=== PATIENT | female | born 1945 | race Caucasian/White ===

== ENCOUNTER 2018-10-23 18:38 | Observation (INO) | payer MEDICARE, MEDICAID, SELFPAY ==
[2018-10-23 18:40] VITALS: BP 163/93; PULSE 73; RESP 16; TEMP 37.1; O2SAT 98; BMI 24.0
--- NOTE | 2018-10-23 19:13 | ED.DCSUM_ITS ---
- ER Visit Summary Date of Service: 10/23/18 Chief Complaint: Bilateral leg redness History of Present Illness: The patient is a 73 F presenting with bilateral leg redness. Daughter states she noticed this a month ago and it has progressively worsened. Patient has been refusing to go to the doctor. She has not been to a doctor in over 20 years. She has a wound left lower leg. She denies drainage. Denies fever. She states she is able to ambulate. Denies chest pain or shortness of breath. Denies nausea or vomiting. Daughter was able to convince her to speak with a doctor through telemedicine today. She was advised to come to the ED for further evaluation. Physical Examination: Vitals are stable. Patient is afebrile. Alert no acute distress. HEENT exam is unremarkable. Neck is supple. Lungs are clear and equal bilaterally. Heart is regular rate and rhythm. Abdomen is soft nontender nondistended. Extremities bilateral lower extremity venous stasis changes with erythema and warmth. 4 cm circular left anterior lower extremity wound with no fluctuance. Neurovascularly intact distally. Skin is warm and dry. No focal neurologic deficit. Remainder of exam is unremarkable. Emergency Department Course and Treatment: Patient was given Ancef IV. CBC, chemistries unremarkable other than BUN 19. Patient is agreeable to admission for IV antibiotics. Discussed with the hospitalist. Disposition: Admission Impression: Bilateral lower extremity cellulitis This note was generated with [employer] dictation software. It may contain incorrect words, spelling, and punctuation that were not noted in review of the chart prior to signing ED Disposition - Plan for ED Patient: Referrals: NOT,DEFINED [NON-STAFF] -
[2018-10-23] MEDS: Cefazolin 1 GM/50 ML BAG IV (19:35)
[2018-10-23 19:40] LABS: Absolute Lymphocyte Count 1.85 X10^3/ul (0.83-4.51); Absolute Neutrophil Count 5.3 X10^3/uL (2.0-7.7); Basophil# 0.01 X10^3/uL; Basophil% 0.1 % (0-1); Eosinophil# 0.07 X10^3/uL; Eosinophils% 0.9 % (0-5); Hematocrit 37.9 % (37-47); Hemoglobin 12.4 g/dl (12.0-15.0); Lymphocyte # 1.85 X10^3/ul (4.0); Lymphocyte % 23.9 % (19-41); Mean Corp Hgb Conc 32.7 g/gl (32-36); Mean Corpuscular Hgb 28.6 pg (27.0-32.0); Mean Corpuscular Volume 87.5 fL (81-99); Mean Platelet Vol. 9.4 fl (6.2-12.0); Monocyte# 0.54 X10^3/uL; Neutrophil # 5.25 X10^3/uL (2.7-7.7); Platelet Count 428 K/mm3 (150-450); RBC Distribution Width SD 41.8 fl (35.1-43.9); Red Blood Count 4.33 M/mm3 (4.2-5.4); White Blood Count 7.7 K/mm3 (4.4-11.0)
[2018-10-23 19:46] LABS: POSITIVE COUNT NO; POSITIVE DIFFERENTIAL NO; POSITIVE MORPHOLOGY NO
[2018-10-23 19:49] LABS: Anion Gap 11 (5-15); BUN 19 mg/dL (7-18); BUN/Creat Ratio 24.8 RATIO (10-20); Calcium,Total 9.4 mg/dL (8.5-10.1); Chloride 101 mmol/L (98-107); Creatinine, Serum 0.77 mg/dL (0.55-1.02); EST Glomerular Filtration Rate 78 mL/min (>60); Est Glom Filt Rate - Afr Amer 95 mL/min (>60); Estimated Creatinine Clearance 43.27 ml/min; Glucose 103 mg/dL (74-106); Sodium Level 141 mmol/L (136-145)
--- NOTE | 2018-10-23 19:58 | HP.PCM_ITS ---
History of Present Illness Date of Admission: 10/23/18 Chief Complaint: ? BL LE cellulitis superimposed on chronic venous stasis The patient is a 73 y/o F w PMHx: Glaucoma, Former Tobacco use who presents to the [facility] ED on 10/23/18, referred to the ED per Tele medicine physician secondary to history of progressively worsening bilateral lower extremity redness with edema which has been worsening over the last month, recently refusing to be seen by a physician with nearly no medical evaluation in the last 20 years with an ongoing superficial left lower extremity wound without drainage, fevers or chills associated. Work-up in the ED included T 98.8, heart 73, BP 163/93, respiratory rate 16, 98% on room air, CBC unremarkable with no evidence of a shift, BMP unremarkable. In the ED patient administered Ancef. 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 Tobacco Use: Non-smoker Alcohol: None Drugs: None - *Family History Maternal History Items: - - Patient was raised in an [facility] and denies any history of her maternal or paternal family noting that neither went to the doctor. Paternal History Items: - - Patient was raised in an [facility] and denies any history of her maternal or paternal family noting that neither went to the doctor. Review of Systems Constitutional: Reports: Malaise, Fatigue. Denies: Anorexia, Chills, Fever, Weakness, Weight Change HEENT: Denies: Head Aches, Sinus Congestion, Sinus Drainage Cardiovascular: Reports: Edema. Denies: Chest Pain, Palpitations Respiratory: Denies: Cough, Shortness of breath at rest, Sputum production Gastrointestinal: Denies: Abdominal Pain, Nausea, Vomiting Genitourinary: Denies: Dysuria Musculoskeletal: Reports: Joint Pain. Denies: Joint Tenderness Skin: Reports: Skin Changes, Wounds. Denies: Rash Neurological: Denies: Numbness, Tingling, Focal weakness Psychiatric: Denies: Anxiety, Depression, Homicidal Ideations, Suicidal Ideations Hematologic/ Lymphatic: Reports: Easy Bruising. Denies: Easy Bleeding VTE Information - Inpt Only VTE Present on Admission: No VTE Mechan Device Prophylaxis: SCD's VTE Pharm Prophylaxis ordered?: Yes Subjective: Seated upright in the bed, no acute distress, notes discomfort to bilateral lower extremities primarily with palpation. Objective: Physical Examination: General: awake, alert, oriented x 3 and cooperative, seated upright in the ED bed in no apparent distress. Skin: normal color, turgor, no icterus, cyanosis noted bilateral lower extremity chronic venous stasis skin changes with notable 2-3+ pitting edema as well as noted left lateral lower extremity shallow wound with no discharge or foul odor. HEENT: AT/NC, EOMI, PERRLA, MMM, no carotid bruits or JVD noted. Lungs: CTA bilaterally, moderate effort, moderate decrease BL bases, no rales, ronchi or wheezing. Heart: Regular rate and rhythm; no gallop, rub audible. Abdomen: soft, NTTP, ND, normal BS, no HSM. Extremities: no cyanosis, clubbing, see skin w/ noted 2-3+ BL LE pitting edema, chronic stasis changes, LLE shallow superficial wound. Neurological: patient awake, alert, oriented x 3; cognitive function intact; pupils equally reactive to light and accomodation; cranial nerves II-XII grossly normal, moving all 4 extremities, no focal deficits, strength mildly to moderately global decrease secondary to acute presentation. Psychiatric: affect appears normal, no acute evidence of depressive or anxiety feelings. - Physical Exam Vital Signs Temp Pulse Resp BP Pulse Ox 98.8 F 73 16 163/93 H 98 10/23/18 18:40 10/23/18 18:40 10/23/18 18:40 10/23/18 18:40 10/23/18 18:40 Oxygen Delivery Method Room Air Weight: 140 lb 3.2 oz Body Mass Index (BMI) 24.0 Laboratory Tests Past 24 Hrs 10/23/18 10/23/18 19:17 19:17 WBC 7.7 RBC 4.33 Hgb 12.4 Hct 37.9 MCV 87.5 MCH 28.6 MCHC 32.7 RDW 13.0 RDW Differential 41.8 Plt Count 428 MPV 9.4 Immature Gran % (Auto) 0.100 Neut % (Auto) 68.0 Lymph % (Auto) 23.9 [place] % (Auto) 7.0 Eos % (Auto) 0.9 Baso % (Auto) 0.1 Absolute Neuts (auto) 5.3 Absolute Lymphs (auto) 1.85 Total Counted Not Reportable Sodium 141 Potassium 4.0 Chloride 101 Carbon Dioxide 29.0 Anion Gap 11 BUN 19 H Creatinine 0.77 Estim Creat Clear Calc 43.27 Est GFR (MDRD) Af Amer 95 Est GFR (MDRD) Non-Af 78 BUN/Creatinine Ratio 24.8 H Glucose 103 Calcium 9.4 Assessment/Plan The patient is a 73 y/o F w PMHx: Glaucoma, Former Tobacco use who presents to the [facility] ED on 10/23/18, referred to the ED per Tele medicine physician secondary to history of progressively worsening bilateral lower extremity redness with edema which has been worsening over the last month. (1) Low Suspicion for Acute BL LE Extremity Cellulitis w/ LLE Anterior Leg W ound, Not Infected Appearing, Complicated by likely BL LE Chronic Venous Stasis: Work-up in the ED included T 98.8, heart 73, BP 163/93, respiratory rate 16, 98% on room air, CBC unremarkable with no evidence of a shift, BMP unremarkable. Will admit to [facility] as observation only, maintain on IV ancef w/ pending MRSA screen, given presentation culture will not be able to be obtained, primarily need to elevated BL LE, administer x 1 dose IV lasix w/ SNUG THOR wraps to BL LE and likely this alone will assist in improvement of her extremities. Will plan repeat CBC in AM, monitor for erythema with VS checks, obtain Wound RN consultation for shallow superficial wound LLE likely secondary to blister. Will need PCP set-up prior to discharge. Also, given suspicion that she may not seek care beyond discharge will also request podiatry evaluation of her feet with notably poor pedial hygiene. (2) Elevated BP without HTN history: Elevated blood pressure in the ED, will continue to trend, if appropriate will need to add oral regimen, PRN IV hydralazine interim. (3) Former tobacco use: Encouraged continued tobacco cessation. (4) Glaucoma: Continue home eyedrops. (5) DVT prophylaxis: SCDs, Lovenox. Code Visit OBSV E&M: 38250 Initial observation care L3
--- NOTE | 2018-10-23 21:05 | VDLE_ITS ---
Reason For Study: Pain RIGHT LEFT GSV is normal. GSV is normal. CFV is compressible, spontaneous, competent CFV is compressible, spontaneous, competent, and demonstrates pulsatile venous flow. and demonstrates pulsatile venous flow. FV is compressible, spontaneous, competent FV is compressible, spontaneous, competent and demonstrates pulsatile venous flow. and demonstrates pulsatile venous flow. POP V is compressible, spontaneous, competent POP V is compressible, spontaneous, competent and demonstrates pulsatile venous flow. and demonstrates pulsatile venous flow. T/P Trunk is compressible. T/P Trunk is compressible. PTV is compressible. PTV is compressible. RT PerV is compressible. LT PerV is compressible. Procedure Exam performed portable in patient room. A preliminary report was called and/or faxed to [facility]. Interpretation Summary Deep veins of the lower extremities are bilaterally patent and compressible segmentally. There is no evidence of deep vein thrombosis on either side. Valvular competence appears intact within the proximal deep venous systems bilaterally. The greater saphenous veins appear bilaterally patent and compressible segmentally. Pulsatile flow is noted in the deep venous system bilaterally, which may be indicative of elevated central venous pressure (i.e. congestive heart failure, tricuspid valve insufficiency, etc.). Clinical correlation is advised. Ordering Physician: Diane Houston Performed By: Maria Victoria Terry RVT
[2018-10-23 21:06] VITALS: BMI 23.1; BMI 23.2
[2018-10-23 21:17] LABS: Magnesium 2.2 mg/dL (1.6-2.6)
[2018-10-23 21:20] VITALS: BP 154/88; PULSE 66; RESP 16; TEMP 36.9; O2SAT 97
[2018-10-23] MEDS: 0.9% NaCl Peripheral Flush Adult/Peds IV (22:55)
[2018-10-23] MEDS: Famotidine 20 MG Tablet PO (22:55)
[2018-10-23] MEDS: 0.9% Normal Saline 1,000 ML 100 ML IV (22:55)
[2018-10-23] MEDS: Furosemide 20 MG/2 ML VIAL IV (22:55)
[2018-10-23] MEDS: Latanoprost 0.005% 1 Bottle 1 DRP EACH EYE (22:55)
[2018-10-24 00:33] LABS: M R Staph aureus DNA By PCR Negative (Negative); Probe Check PASS; Specimen Processing Control PASS
[2018-10-24 01:53] VITALS: BP 122/72; PULSE 76; RESP 16; TEMP 36.9; O2SAT 96
[2018-10-24] MEDS: Cefazolin 1 GM/50 ML BAG IV (05:44)
[2018-10-24] MEDS: Acetaminophen 325 MG Tablet 650 MG PO (05:50)
[2018-10-24 06:43] LABS: Absolute Lymphocyte Count 1.45 X10^3/ul (0.83-4.51); Absolute Neutrophil Count 5.7 X10^3/uL (2.0-7.7); Basophil# 0.01 X10^3/uL; Basophil% 0.1 % (0-1); Eosinophil# 0.07 X10^3/uL; Eosinophils% 0.9 % (0-5); Hematocrit 36.2 % (37-47); Hemoglobin 11.7 g/dl (12.0-15.0); Lymphocyte # 1.45 X10^3/ul (4.0); Mean Corp Hgb Conc 32.3 g/gl (32-36); Mean Corpuscular Hgb 28.3 pg (27.0-32.0); Mean Corpuscular Volume 87.7 fL (81-99); Mean Platelet Vol. 9.4 fl (6.2-12.0); Monocyte# 0.86 X10^3/uL; Monocyte% 10.7 % (0-10); Neutrophil # 5.66 X10^3/uL (2.7-7.7); Neutrophil % 70.2 % (47-70); Platelet Count 375 K/mm3 (150-450); RBC Distribution Width CV 13.1 % (11.6-14.6); RBC Distribution Width SD 42.3 fl (35.1-43.9); Red Blood Count 4.13 M/mm3 (4.2-5.4); White Blood Count 8.1 K/mm3 (4.4-11.0)
[2018-10-24 06:45] LABS: POSITIVE COUNT NO; POSITIVE DIFFERENTIAL NO; POSITIVE MORPHOLOGY NO
[2018-10-24 06:51] LABS: Anion Gap 9 (5-15); BUN 16 mg/dL (7-18); BUN/Creat Ratio 21.9 RATIO (10-20); Calcium,Total 8.8 mg/dL (8.5-10.1); Chloride 105 mmol/L (98-107); Creatinine, Serum 0.73 mg/dL (0.55-1.02); EST Glomerular Filtration Rate 83 mL/min (>60); Est Glom Filt Rate - Afr Amer 100 mL/min (>60); Estimated Creatinine Clearance 43.27 ml/min; Glucose 113 mg/dL (74-106); Potassium 3.8 mmol/L (3.5-5.1); Sodium Level 141 mmol/L (136-145)
--- NOTE | 2018-10-24 06:58 | PCM.CONS.GEN ---
Problem List (1) Ulcer of left lower extremity with fat layer exposed Status: Acute (2) Venous insufficiency Status: Acute (3) Lower extremity edema Status: Acute (4) Tinea unguium Status: Acute Reason for Consult Date of Consultation: 10/24/18 Reason for Consultation: Venous stasis ulcer left lower extremity. Bilateral lower extremity edema History of Present Illness: The patient is a 73 y/o F w PMHx: Glaucoma, Former Tobacco use who presents to the [facility] ED on 10/23/18, referred to the ED per Tele medicine physician secondary to history of progressively worsening bilateral lower extremity redness with edema which has been slowly worsening over the last month. She is with her daughter resting in bed this morning. 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 She says she has been treating superficial ulcer to left lower leg with neosporin. She currently denies any feelings of nausea, vomiting, fever, or chills. 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 Paternal History Items: - - Patient was raised in an [facility] and denies any history of her maternal or paternal family noting that neither went to the doctor. Review of Systems Constitutional: Denies: Chills, Fever, Weight Change Cardiovascular: Denies: Chest Pain, Palpitations Respiratory: Denies: Cough, Shortness of breath at rest, Sputum production Gastrointestinal: Denies: Abdominal Pain, Nausea, Vomiting Skin: Reports: - - ulcer left lower extremity Patient Problems: Active and Suspected Problems Ulcer of left lower extremity with fat layer exposed (Acute) Venous insufficiency (Acute) Lower extremity edema (Acute) Tinea unguium (Acute) - Physical Exam General: Alert, Oriented x3, Cooperative, No apparent distress Extremities: Capillary Refill Less than 3 Seconds - To all distal digits bilateral, No Calf Tenderness - Negative Heracloi and Epperson signs bilateral, Edema - Bilateral pitting lower extremity edema, Peripheral Pulses Normal - DP and PT pulses palpable bilateral Skin: Ulcer/ Wound - Ulcer with fat layer exposed to left lateral lower leg measuring approximately 3 cm x 2 cm x 0.1 cm. Base is granular. No probing, tracking, undermining. There is no purulence, no malodor, no streaking cellulitis. There is some minor erythema to bilateral lower extremity which both the patient and the patient's daughter feel has improved just since admission., - - Toenails 1, 2, 3, 4, 5 of the right and left foot are extremely thickened elongated with the presence of subungual debris. All toenails are painful to palpation. Musculoskeletal: Tenderness - With manipulation of ulcer site Neurological: Sensory exam intact to light touch and pain Psych/Mental Status: Normal Affect, Appropriate Vital Signs Temp Pulse Resp BP Pulse Ox 98.5 F 76 16 122/72 H 96 10/24/18 01:53 10/24/18 01:53 10/24/18 01:53 10/24/18 01:53 10/24/18 01:53 Oxygen Delivery Method Room Air Weight: 61.292 kg Body Mass Index (BMI) 23.1 Intake and Output for Last 24 Hours 10/22/18 10/23/18 10/24/18 23:59 23:59 23:59 Intake Total 199 / 199 683 / 683 Output Total 200 / 200 800 / 800 Balance -1 / -1 -117 / -117 Laboratory Tests Past 24 Hrs 10/23/18 10/23/18 10/23/18 19:17 19:17 19:17 WBC 7.7 RBC 4.33 Hgb 12.4 Hct 37.9 MCV 87.5 MCH 28.6 MCHC 32.7 RDW 13.0 RDW Differential 41.8 Plt Count 428 MPV 9.4 Immature Gran % (Auto) 0.100 Neut % (Auto) 68.0 Lymph % (Auto) 23.9 [place] % (Auto) 7.0 Eos % (Auto) 0.9 Baso % (Auto) 0.1 Absolute Neuts (auto) 5.3 Absolute Lymphs (auto) 1.85 Total Counted Not Reportable Sodium 141 Potassium 4.0 Chloride 101 Carbon Dioxide 29.0 Anion Gap 11 BUN 19 H Creatinine 0.77 Estim Creat Clear Calc 43.27 Est GFR (MDRD) Af Amer 95 Est GFR (MDRD) Non-Af 78 BUN/Creatinine Ratio 24.8 H Glucose 103 Calcium 9.4 Magnesium 2.2 MRSA (PCR) 10/23/18 10/24/18 10/24/18 23:05 06:14 06:14 WBC 8.1 RBC 4.13 L Hgb 11.7 L Hct 36.2 L MCV 87.7 MCH 28.3 MCHC 32.3 RDW 13.1 RDW Differential 42.3 Plt Count 375 MPV 9.4 Immature Gran % (Auto) 0.100 Neut % (Auto) 70.2 H Lymph % (Auto) 18.0 L [place] % (Auto) 10.7 H Eos % (Auto) 0.9 Baso % (Auto) 0.1 Absolute Neuts (auto) 5.7 Absolute Lymphs (auto) 1.45 Total Counted Not Reportable Sodium 141 Potassium 3.8 Chloride 105 Carbon Dioxide 27.0 Anion Gap 9 BUN 16 Creatinine 0.73 Estim Creat Clear Calc 43.27 Est GFR (MDRD) Af Amer 100 Est GFR (MDRD) Non-Af 83 BUN/Creatinine Ratio 21.9 H Glucose 113 H Calcium 8.8 Magnesium MRSA (PCR) Negative Assessment/Plan All Active Problems Ulcer of left lower extremity with fat layer exposed (Acute) Venous insufficiency (Acute) Lower extremity edema (Acute) Tinea unguium (Acute) Ulcer fat layer exposed left lower extremity Venous insufficiency Lower extremity edema Tinea unguium This patient was carefully examined and evaluated this morning resting in bed with patient's daughter present in the room. WBC is 8.1. Vital signs are stable. Patient's ulcer site carefully freed of any debris leaving a nice red granular base. Aquacel Ag was applied to the base, followed by 4 x 4's, Kerlix and an Fabian bandage. Fabian bandage also applied to the right lower extremity. Patient to have dressing changes in this manner daily by nursing staff. Patient and the patient's daughter were instructed on the importance of keeping the legs elevated at all times while the patient is sitting or in bed as well as keeping compression to the lower extremities. Patient was instructed to not sit with the legs in a dependent position for an extended period of time. Toenails 1, 2, 3, 4, 5 of the right and left foot were carefully debrided in length using a nail nipper. This was done without incident. Patient experienced complete relief of toenail pain following debridement. The patient can follow-up at the wound healing center upon discharge for further treatment of her left lateral lower leg ulcer. Podiatry can follow this patient on an as-needed basis at this point.
[2018-10-24 07:32] VITALS: PULSE 80
[2018-10-24 07:38] VITALS: BP 109/69; PULSE 68; RESP 16; TEMP 37.1; O2SAT 95
[2018-10-24 07:53] VITALS: O2SAT 95
--- NOTE | 2018-10-24 08:12 | PN_ITS ---
Patient Problems: Active and Suspected Problems Ulcer of left lower extremity with fat layer exposed (Acute) Venous insufficiency (Acute) Lower extremity edema (Acute) Tinea unguium (Acute) Vitals/I&O's: Vital Signs Temp Pulse Resp BP Pulse Ox 98.8 F 68 16 109/69 95 10/24/18 07:38 10/24/18 07:38 10/24/18 07:38 10/24/18 07:38 10/24/18 07:38 Oxygen Delivery Method Room Air Weight: 135 lb 2 oz Body Mass Index (BMI) 23.1 Intake and Output for Last 24 Hours 10/22/18 10/23/18 10/24/18 23:59 23:59 23:59 Intake Total 199 / 199 683 / 683 Output Total 200 / 200 800 / 800 Balance -1 / -1 -117 / -117 Laboratory Results 10/23/18 19:17: WBC 7.7, RBC 4.33, Hgb 12.4, Hct 37.9, MCV 87.5, MCH 28.6, MCHC 32.7, RDW 13.0, RDW Differential 41.8, Plt Count 428, MPV 9.4, Immature Gran % (Auto) 0.100, Neut % (Auto) 68.0, Lymph % (Auto) 23.9, [place] % (Auto) 7.0, Eos % (Auto) 0.9, Baso % (Auto) 0.1, Absolute Neuts (auto) 5.3, Absolute Lymphs (auto) 1.85, Total Counted Not Reportable 10/23/18 19:17: Sodium 141, Potassium 4.0, Chloride 101, Carbon Dioxide 29.0, Anion Gap 11, BUN 19 H, Creatinine 0.77, Estim Creat Clear Calc 43.27, Est GFR (MDRD) Af Amer 95, Est GFR (MDRD) Non-Af 78, BUN/Creatinine Ratio 24.8 H, Glucos e 103, Calcium 9.4 10/23/18 19:17: Magnesium 2.2 10/23/18 23:05: MRSA (PCR) Negative 10/24/18 06:14: WBC 8.1, RBC 4.13 L, Hgb 11.7 L, Hct 36.2 L, MCV 87.7, MCH 28.3, MCHC 32.3, RDW 13.1, RDW Differential 42.3, Plt Count 375, MPV 9.4, Immature Gran % (Auto) 0.100, Neut % (Auto) 70.2 H, Lymph % (Auto) 18.0 L, [place] % (Auto) 10.7 H, Eos % (Auto) 0.9, Baso % (Auto) 0.1, Absolute Neuts (auto) 5.7, Absolute Lymphs (auto) 1.45, Total Counted Not Reportable 10/24/18 06:14: Sodium 141, Potassium 3.8, Chloride 105, Carbon Dioxide 27.0, Anion Gap 9, BUN 16, Creatinine 0.73, Estim Creat Clear Calc 43.27, Est GFR (MDRD) Af Amer 100, Est GFR (MDRD) Non-Af 83, BUN/Creatinine Ratio 21.9 H, Glucose 113 H, Calcium 8.8 Current Medications Acetaminophen (Tylenol) 650 mg PO Q6H PRN PRN PRN Reason: Non-cardiac pain (mod-severe) Last Admin: 10/24/18 05:50 Dose: 650 mg Documented by: Hydrocodone Bitart/Acetaminophen ([place] 5mg-325mg) 1 - 2 tablet PO Q6H PRN PRN PRN Reason: MOD-SEVERE PAIN (4-02/07) Al Hydroxide/Mg Hydroxide (Mylanta Ii) 15 - 30 ml PO Q4H PRN PRN PRN Reason: INDIGESTION Albuterol Sulfate (Ventolin Aerosols) 2.5 mg INHALATION Q2H PRN PRN PRN Reason: dyspnea, wheezing Dextrose (D50w Syringe) 0 gm IV X1 PRN; Protocol PRN Reason: Hypoglycemia Enoxaparin Sodium (Lovenox) 40 mg SC DAILY@1000 KAYE Famotidine (Pepcid) 20 mg PO BID [facility] Last Admin: 10/23/18 22:55 Dose: 20 mg Documented by: Glucagon () 1 mg IM .X1 PRN PRN Reason: Hypoglycemia Hydralazine HCl (Apresoline Iv) 10 mg IV Q4H PRN PRN PRN Reason: SBP > 160 Cefazolin Sodium () 1 gm in 50 mls @ 100 mls/hr IV Q8 [facility] Last Admin: 10/24/18 05:44 Dose: 100 mls/hr Documented by: Latanoprost (Xalatan Opthalmic) 1 drop EACH EYE QHS KAYE Last Admin: 10/23/18 22:55 Dose: 1 drop Documented by: Magnesium Hydroxide (Milk Of Magnesia) 30 ml PO DAILY PRN PRN Reason: Constipation Melatonin (Melatonin) 3 mg PO QHS PRN PRN PRN Reason: INSOMNIA Morphine Sulfate () 1 - 2 mg IV Q4H PRN PRN PRN Reason: PAIN Nutritional Formula (Lactose Free) (Ensure Enlive) 120 ml PO 4X/DAY KAYE Ondansetron HCl (Zofran) 4 mg IV Q8H PRN PRN PRN Reason: NAUSEA/VOMITING Sodium Chloride () 5 - 15 ml IV UD PRN PRN Reason: SALINE FLUSH Last Admin: 10/23/18 22:55 Dose: 10 ml Documented by: Timolol Maleate (Timoptic) 1 drop EACH EYE DAILY KAYE Medical Necessity - Tobacco Use Smoking Status: Former smoker Tobacco Use: Non-smoker Assessment/Plan All Active Problems Ulcer of left lower extremity with fat layer exposed (Acute) Venous insufficiency (Acute) Lower extremity edema (Acute) Tinea unguium (Acute) The patient is a 73 y/o F w PMHx: Glaucoma, Former Tobacco use who presents to the [facility] ED on 10/23/18, referred to the ED per Tele medicine physician secondary to history of progressively worsening bilateral lower extremity redness with edema which has been worsening over the last month. (1) Low Suspicion for Acute BL LE Extremity Cellulitis w/ LLE Anterior Leg Wound, Not Infected Appearing, Complicated by likely BL LE Chronic Venous Stasis: Work-up in the ED included T 98.8, heart 73, BP 163/93, respiratory rate 16, 98% on room air, CBC unremarkable with no evidence of a shift, BMP unremarkable. Will admit to [facility] as observation only, maintain on IV ancef w/ pending MRSA screen, given presentation culture will not be able to be obtained, primarily need to elevated BL LE, administer x 1 dose IV lasix w/ SNUG THOR wraps to BL LE and likely this alone will assist in improvement of her extremities. Will plan repeat CBC in AM, monitor for erythema with VS checks, obtain Wound RN consultation for shallow superficial wound LLE likely secondary to blister. Will need PCP set-up prior to discharge. Also, given suspicion that she may not seek care beyond discharge will also request podiatry evaluation of her feet with notably poor pedial hygiene. (2) Elevated BP without HTN history: Elevated blood pressure in the ED, will continue to trend, if appropriate will need to add oral regimen, PRN IV hydralazine interim. (3) Former tobacco use: Encouraged continued tobacco cessation. (4) Glaucoma: Continue home eyedrops. (5) DVT prophylaxis: SCDs, Lovenox.
--- NOTE | 2018-10-24 08:32 | PCM.DC ---
- Discharge Diagnoses Current Active Problems: Current Active and Chronic Problems Ulcer of left lower extremity with fat layer exposed (Acute) Venous insufficiency (Acute) Lower extremity edema (Acute) Tinea unguium (Acute) You will use the following diet at home:: Cardiac Discharge Activity: May Not Drive Keep extremity elevated above heart level: Left Leg Call your doctor if you observe: Fever of 101 or Higher, Change in Color, Inability to urinate, Inability to have a bowel movement, Shortness of breath, Dizziness, Fainting spells, Swelling in the ankles, Chest pain, Increased palpitations (irregular heartbeat), Calf discomfort, Uncontrolled pain Allergies/Adverse Reactions: Allergies No Known Allergies Allergy (Verified 10/23/18 18:39) Medications to take at Discharge Latanoprost 0.005% [Xalatan Opthalmic] 1 drp EACH EYE QHS 10/23/18 Timolol 0.5% [Timoptic] 1 drp EACH EYE DAILY 10/23/18 Cefadroxil [Duracef] 500 mg PO BID #10 cap 10/24/18 The following prescriptions were given: Cefadroxil [Duracef] 500 mg PO BID #10 cap Transmission Status: Pending to [id number] Primary Care Physician: NOT,DEFINED [NON-STAFF] - Please follow up with your Primary Care Physician in: in 1-2 week Test Results: Test results from this visit will be discussed in further detail at your follow-up appointment, if applicable. Please Follow Up With: Soham Hill DPM When: in 1-2 week
--- NOTE | 2018-10-24 08:34 | DS.PCM_ITS ---
Discharge Date and Diagnosis - Problem List Patient Problems: Active and Suspected Problems Ulcer of left lower extremity with fat layer exposed (Acute) Venous insufficiency (Acute) Lower extremity edema (Acute) Tinea unguium (Acute) Date of Admission: 10/23/18 Date of Discharge: 10/24/18 - Primary Discharge Diagnosis Active and Suspected Problems Ulcer of left lower extremity with fat layer exposed (Acute) Venous insufficiency (Acute) Lower extremity edema (Acute) Tinea unguium (Acute) Hospital Course and Treatment Consultations 10/23/18 21:05 Consult: Onc/Wound/machine shorthand reporter Routine Comment: Summary of Care Provided: [] The patient is a 73 y/o F with history of glaucoma, Former Tobacco use admitted to telemetry medicine physician secondary to progress Colin worsening of bilateral lower extremity redness with edema for last 1 month. (1) left lateral lower leg deep ulcer with bilateral lower extremity redness with edema probably from venous stasis, chronic in nature: Cellulitis ruled out patient has unremarkable CBC and vital signs stable. Patient was admitted on MedSurg. Empirically started on IV Ancef. MRSA nasal screen negative. Patient was seen by header set up operator. The patient has ulcer, deep to fat layer, approximately 3 x 2 x 0.1 cm. This with no tracking or undermining. The wound dressing was done by header set up operator with Aquacel gel with Fabian wrap bandage. Patient was advised to follow with the wound healing center upon discharge. Patient discharged on cefadroxil for 5 days. (2) Elevated BP without HTN history: Blood pressure control. Advised to follow- up with PCP. (3) Former tobacco use: Encouraged continued tobacco cessation. (4) Glaucoma: Continue home eyedrops. (5) DVT prophylaxis: SCDs, Lovenox. Discharge medication reconciliation done. Discharge follow-up instructions completed. Discharge process discussed with the patient and her daughter near the bedside and all questions were answered to patient's satisfaction. Total time spent, exact 35 minutes on discharge meds reconciliation, examination, review of imaging and blood test and discussion with the patient on follow-up instructions. Patient Problems: Active and Suspected Problems Ulcer of left lower extremity with fat layer exposed (Acute) Venous insufficiency (Acute) Lower extremity edema (Acute) Tinea unguium (Acute) - Physical Exam Vital Signs Temp Pulse Resp BP Pulse Ox 98.8 F 68 16 109/69 95 10/24/18 07:38 10/24/18 07:38 10/24/18 07:38 10/24/18 07:38 10/24/18 07:38 Oxygen Delivery Method Room Air Weight: 135 lb 2 oz Body Mass Index (BMI) 23.1 Intake and Output for Last 24 Hours 10/22/18 10/23/18 10/24/18 23:59 23:59 23:59 Intake Total 199 / 199 683 / 683 Output Total 200 / 200 800 / 800 Balance -1 / -1 -117 / -117 Laboratory Tests Past 24 Hrs 10/23/18 10/23/18 10/23/18 19:17 19:17 19:17 WBC 7.7 RBC 4.33 Hgb 12.4 Hct 37.9 MCV 87.5 MCH 28.6 MCHC 32.7 RDW 13.0 RDW Differential 41.8 Plt Count 428 MPV 9.4 Immature Gran % (Auto) 0.100 Neut % (Auto) 68.0 Lymph % (Auto) 23.9 [place] % (Auto) 7.0 Eos % (Auto) 0.9 Baso % (Auto) 0.1 Absolute Neuts (auto) 5.3 Absolute Lymphs (auto) 1.85 Total Counted Not Reportable Sodium 141 Potassium 4.0 Chloride 101 Carbon Dioxide 29.0 Anion Gap 11 BUN 19 H Creatinine 0.77 Estim Creat Clear Calc 43.27 Est GFR (MDRD) Af Amer 95 Est GFR (MDRD) Non-Af 78 BUN/Creatinine Ratio 24.8 H Glucose 103 Calcium 9.4 Magnesium 2.2 MRSA (PCR) 10/23/18 10/24/18 10/24/18 23:05 06:14 06:14 WBC 8.1 RBC 4.13 L Hgb 11.7 L Hct 36.2 L MCV 87.7 MCH 28.3 MCHC 32.3 RDW 13.1 RDW Differential 42.3 Plt Count 375 MPV 9.4 Immature Gran % (Auto) 0.100 Neut % (Auto) 70.2 H Lymph % (Auto) 18.0 L [place] % (Auto) 10.7 H Eos % (Auto) 0.9 Baso % (Auto) 0.1 Absolute Neuts (auto) 5.7 Absolute Lymphs (auto) 1.45 Total Counted Not Reportable Sodium 141 Potassium 3.8 Chloride 105 Carbon Dioxide 27.0 Anion Gap 9 BUN 16 Creatinine 0.73 Estim Creat Clear Calc 43.27 Est GFR (MDRD) Af Amer 100 Est GFR (MDRD) Non-Af 83 BUN/Creatinine Ratio 21.9 H Glucose 113 H Calcium 8.8 Magnesium MRSA (PCR) Negative Discharge Activity: May Not Drive Keep extremity elevated above heart level: Left Leg Call your doctor if you observe: Fever of 101 or Higher, Change in Color, Inability to urinate, Inability to have a bowel movement, Shortness of breath, Dizziness, Fainting spells, Swelling in the ankles, Chest pain, Increased palpitations (irregular heartbeat), Calf discomfort, Uncontrolled pain Home Medications: Medications to take at Discharge Latanoprost 0.005% [Xalatan Opthalmic] 1 drp EACH EYE QHS 10/23/18 Timolol 0.5% [Timoptic] 1 drp EACH EYE DAILY 10/23/18 Cefadroxil [Duracef] 500 mg PO BID #10 cap 10/24/18 Following Prescrptions Were Given to Patient: Cefadroxil [Duracef] 500 mg PO BID #10 cap Transmission Status: Received by [id number] Primary Care Physician: NOT,DEFINED [NON-STAFF] - Please follow up with your Primary Care Physician in: in 1-2 week Please Follow Up With: Soham Hill DPM When: in 1-2 week Medical Necessity - Tobacco Use Smoking Status: Former smoker Tobacco Use: Non-smoker Meaningful Use Info Meaningful Use Diagnoses (Choose all that apply): None applicable Code Visit Inpatient E&M: 74087 Disch Hosp
[2018-10-24] MEDS: 0.9% NaCl Peripheral Flush Adult/Peds IV (09:30)
[2018-10-24] MEDS: Enoxaparin 40 MG/0.4 ML Syringe SC (09:30)
[2018-10-24] MEDS: Famotidine 20 MG Tablet PO (09:30)
[2018-10-24] MEDS: Timolol 0.5% 5ML OPTH.BTL 1 DRP EACH EYE (09:31)
--- NOTE | 2018-10-24 11:20 | CASEMGMT ---
SEVERINO BAUM Face to Face with patient for initial transition planning/care coordination assessment. SEVERINO BAUM introduced self and role at [facility]. Patient lying in bed, alert and oriented. Patient willing to participate in assessment and is able to answer all questions appropriately. Care providers, pharmacy, and demographics verified. Patient wishes to discharge home, denies need for home health at this time. Patient states she has no further needs or concerns at this time. CM to follow for discharge planning needs that may arise. PCP: None, list of PCPs provided, daughter states she will help schedule appt. Specialists: None Preferred Pharmacy: [facility] Insurance: [facility] Prescription Benefit: ? Living Will/HPOA: none LNOK: son and daughter Living Arrangements: Patient lives alone in first floor apartment. Patient's son live right down the street and is a YOU[employer] OFF[employer]. Transportation: son or daughter DME/HHC: Patient denies any DME or HHC. Daughter and son to assist with dressing changes. Patient is to follow-up in the wound center. SEVERINO BAUM updated family that once patient is established with PCP, they could look into HHC if needed. Family and patient voiced understanding. Disposition Plan: Patient to discharge home with family support and follow-up plans in place. Maria Victoria FRYE, RN, CM
[2018-10-24 12:22] VITALS: BP 149/71; PULSE 81; RESP 18; TEMP 37.1; O2SAT 97
== END 2018-10-24 13:25 | disposition home or self-care (01) ==
LOC: ED 19:22 → MS3 20:17
PROVIDERS: Admitting Provider Family Medicine; Emergency Provider Emergency Medicine; Referring Provider Family Medicine; Visit Provider Internal Medicine
DX: I87.2 Venous insufficiency (chronic) (peripheral) (principal); B35.1 Tinea unguium; L97.822 Non-pressure chronic ulcer of other part of left lower leg with fat layer exposed; H40.9 Unspecified glaucoma; R03.0 Elevated blood-pressure reading, without diagnosis of hypertension; R60.0 Localized edema; Z87.891 Personal history of nicotine dependence; Z79.899 Other long term (current) drug therapy
CPT/HCPCS: 36415; 80048; 83735; 85025; 87641; 93970; 96361; 96365; 96366; 96372; 96375; 99218; 99282; J7030; A4216; G0378; J1940

== ENCOUNTER 2018-11-28 15:15 | Outpatient (RCR) | payer MEDICARE, MEDICAID, SELFPAY ==
[2018-10-23 21:06] VITALS: BMI 23.1
[2018-11-08 08:52] VITALS: BP 161/88; PULSE 71; RESP 18; TEMP 36.2; BMI 20.7
[2018-11-08 09:12] VITALS: BMI 20.7
--- NOTE | 2018-11-08 09:47 | PCM.WC.HP ---
(1) Ulcer of left lower extremity with fat layer exposed Status: Acute Current Visit: No Code(s): L97.922 - Non-pressure chronic ulcer of unspecified part of left lower leg with fat layer exposed (2) Pain in left lower leg Status: Acute Current Visit: Yes Code(s): M79.662 - Pain in left lower leg (3) Lower extremity edema Status: Acute Current Visit: No Code(s): R60.0 - Localized edema (4) Venous insufficiency Status: Acute Current Visit: No Code(s): I87.2 - Venous insufficiency (chronic) (peripheral) History of Present Illness Date of Service: 11/08/18 Chief Complaint: left lower leg ulcer History of Wound: This 73-year-old female presents to the wound healing center today for left lower leg ulcer. The patient was originally seen late September in the hospital. This patient had been neglecting her overall health for years and had not seen a doctor of any sort. Since her discharge from the hospital, she has been having daily dressing changes performed by family members and keeping compression to lower extremities and trying to keep her legs elevated. She feels that she has noticed improvement in the ulcer site since her discharge. She currently denies any feelings of nausea, vomiting, fever, chills. Past Medical History Surgical History: no surgical history Allergies/Adverse Reactions: Allergies No Known Allergies Allergy (Verified 10/23/18 18:39) Home Medications: Ambulatory Orders Medication Instructions Recorded Latanoprost 0.005% [Xalatan 1 drp EACH EYE QHS 10/23/18 Opthalmic] Timolol 0.5% [Timoptic] 1 drp EACH EYE DAILY 10/23/18 - Family History Maternal - - Patient was raised in an [facility] and denies any history of her maternal or paternal family noting that neither went to the doctor. Paternal - - Patient was raised in an [facility] and denies any history of her maternal or paternal family noting that neither went to the doctor. Smoking Status: Never smoker Review of Systems Constitutional: Denies: Chills, Fever, Weight Change Cardiovascular: Denies: Chest Pain, Palpitations Respiratory: Denies: Cough, Shortness of Breath Gastrointestinal: Denies: Diarrhea, Nausea, Vomiting Skin: Reports: - - Left lower leg ulcer - Physical Exam Vital Signs Temp Pulse Resp BP 97.1 F L 71 18 161/88 H 11/08/18 08:52 11/08/18 08:52 11/08/18 08:52 11/08/18 08:52 General: Alert, Oriented x3, Cooperative, No apparent distress Extremities: No cyanosis, Capillary Refill Less than 3 Seconds, No Calf Tenderness - Negative Heraclio and Epperson sign, Edema - Bilateral lower extremity edema, Peripheral Pulses Normal Skin: Ulcer/ Wound - Ulcer left lower extremity with fat layer exposed. The basis of mixture of granular tissue, adherent slough, fibrin, biofilm, and minor surrounding hyperkeratotic tissue. There is no probing to bone, no tracking, no undermining, no purulence, no malodor, no surrounding or extending cellulitis, and no increase in warmth to the ulcer site. Wound Measurements and Assessment WC - Nurse 1 - General Ulcer Measurement Start: 11/08/18 08:48 Freq: Status: Active Protocol: Activity Type Activity Date Activity User E-Sign Co-Sign Detail Recorded Client Recorded Date Recorded By Document 11/08/18 09:12 [id number] 11/08/18 09:17 11/08/18 09:12 Wound Center Nurse 1 [Ulcer Assessment] #1 Left Lateral lower ext -Combined with other wound No -Current Size (cm) - Length 1.9 -Current Size (cm) - Width 1.2 -Current Size (cm) - Depth 0.1 -Total Square Cm 2.28 -Date of Last Picture (Recall this 11/08/18 field) -Photo Taken Yes -Epithelialization Large 67-100% -Tunneling No -Undermining/Tunneling No -Circular Undermining No -Exudate Amt Small -Exudate Type Serosanguineous -Wound Margin Flat & Intact -Granulation Amt Large (67-100%) -Granulation Quality Red -Slough/Fibrin Yes -Necrosis Amt None Present (0 %) -Structure Exposed None/Limited to Skin Breakdown -Texture (Tiny-wound Skin Appearance) Assessed,Rash -Moisture (Tiny-wound Skin Appearance Assessed,Dry/ ) Scaly -Color (Tiny-wound Skin Appearance) Assessed, Erythema -Temperature (Tiny-wound Skin No Abnormality Appearance) (Pt Warm) -Ulcer Cleansing Rinsed/ Irrigated with Saline -Foul Odor after Cleansing No -Anesthetic Used 5% Lidocaine Gel [Edema Assessment] -Lower Limb Edema Present Yes -Right Calf (cm) 37.5 -Right Ankle (cm) 21.5 -Left Calf (cm) 35 -Left Ankle (cm) 22 MARY - Nurse 2 - General Ulcer CM Notes Start: 11/08/18 08:48 Freq: Status: Active Protocol: Activity Type Activity Date Activity User E-Sign Co-Sign Detail Recorded Client Recorded Date Recorded By Document 11/08/18 09:42 [id number] 11/08/18 09:43 11/08/18 09:42 Wound Center Nurse 2 [Procedure/Treatment] #1 Left Lateral lower ext -Time 09:42 -Correct Patient Yes -Correct Side, Site, Position Yes -Correct Procedure Yes -Procedure Performed Yes -Type of Procedure Debridement -Clinical Debridement Subcutaneous -Post Debridement Size (cm) - Length 1.9 -Post Debridement Size (cm) - Width 1.3 -Post Debridement Size (cm) - Depth 0.1 -Total Square Cm 2.47 -Wound/Ulcer Outcome Not Healed -Ulcer Cleansing Rinsed/ Irrigated with Saline -Foul Odor after Cleansing No -Bioengineered Tissue No -Bleeding Controlled with Pressure -Offloading No -Treatment Response Procedure Tolerated Well [See Physician Procedure note for Specifics] Pain Scale: 0-10 Numeric [Pain] -Is Patient Pain Free? Yes Musculoskeletal: Tenderness - With manipulation of ulcer site Neurological: Sensory exam intact to light touch and pain Psych/Mental Status: Normal Affect, Appropriate Debridement Note Post-Debridement Measurements/Treatment MARY - Nurse 2 - General Ulcer CM Notes Start: 11/08/18 08:48 Freq: Status: Active Protocol: Activity Type Activity Date Activity User E-Sign Co-Sign Detail Recorded Client Recorded Date Recorded By Document 11/08/18 09:42 [id number] 11/08/18 09:43 11/08/18 09:42 Wound Center Nurse 2 #1 Left Lateral lower ext -Time 09:42 -Correct Patient Yes -Correct Side, Site, Position Yes -Correct Procedure Yes -Procedure Performed Yes -Type of Procedure Debridement -Clinical Debridement Subcutaneous -Post Debridement Size (cm) - Length 1.9 -Post Debridement Size (cm) - Width 1.3 -Post Debridement Size (cm) - Depth 0.1 -Total Square Cm 2.47 -Wound/Ulcer Outcome Not Healed -Ulcer Cleansing Rinsed/ Irrigated with Saline -Foul Odor after Cleansing No -Bioengineered Tissue No -Bleeding Controlled with Pressure -Offloading No -Treatment Response Procedure Tolerated Well Pain Scale: 0-10 Numeric Is Patient Pain Free? Yes Wound debrided: Left lower leg Laterality: Left Type of Debridement: Excisional debridement Anesthesia Used: 4% Lidocaine Solution Depth: in the subcutaneous layer Percentage of wound debrided: 100 Instrument Used: 5mm curette Tissue Removed: Adherent slough, fibrin, biofilm, hyperkeratotic tissue Severity: Fat Layer Exposed Amount of bleeding with debridement: Mild Bleeding Controlled with: Pressure Patient tolerated procedure well Assessment/Plan Active Problems Pain in left lower leg (Acute) Assessment: Ulcer left lower leg. Venous insufficiency. Lower extremity edema. Pain left lower leg. Other comorbidities Plan: This patient was carefully examined and evaluated in detail today. A subcutaneous debridement was performed as noted in the clinical panel. Once complete a slightly moistened Aquacel Ag was placed to the base followed by a dry sterile dressing and Tubigrip for compression. Patient is to have the dressing change in this manner daily with the help of family members. Dressing supplies were ordered to be delivered to the patient's house. The importance of keeping the ulcer site offloaded was stressed in detail. The importance of keeping compression to the area is also stressed that this patient. She was instructed to keep the lower extremities elevated all times while seated or lying down. Patient is recently finished a course of antibiotics. There are no current signs of local infection appreciated today. Patient's lab work was reviewed from her brief stay in the hospital late last month. Her venous Doppler studies were also reviewed. I recommend a diet high in protein to help optimize the patient's ulcer healing potential. It was stressed the importance of her getting established with a primary care physician. The patient was educated on all signs and symptoms of local and systemic infection, and she was instructed to go to the emergency room immediately should she notice any of these. All other questions were answered to patient satisfaction. Patient will follow back up in clinic in 1 week to check on progress, but was instructed to follow-up sooner if needed.
[2018-11-14 14:39] VITALS: BP 151/81; PULSE 78; RESP 16; TEMP 36.6; BMI 20.7
--- NOTE | 2018-11-14 15:30 | PN.PCM_ITS ---
(1) Ulcer of left lower extremity with fat layer exposed Status: Chronic Current Visit: Yes Code(s): L97.922 - Non-pressure chronic ulcer of unspecified part of left lower leg with fat layer exposed (2) Venous insufficiency Status: Chronic Current Visit: Yes Code(s): I87.2 - Venous insufficiency (chronic) (peripheral) (3) Lower extremity edema Status: Chronic Current Visit: Yes Code(s): R60.0 - Localized edema (4) Pain in left lower leg Status: Chronic Current Visit: Yes Code(s): M79.662 - Pain in left lower leg Type of Wound Date of Service: 11/15/18 Chief Complaint: left lower leg ulcer History of Wound: This 73-year-old female presents to the wound healing center today for left lower leg ulcer. She tries to wear compression dressing and elevates her legs. She had venous reflux studies performed. She currently denies any feelings of nausea, vomiting, fever, chills. Progress of Wound: Stable - Physical Exam Vital Signs Temp Pulse Resp BP 97.8 F 78 16 151/81 H 11/14/18 14:39 11/14/18 14:39 11/14/18 14:39 11/14/18 14:39 General: Alert, Oriented x3, Cooperative, No apparent distress HEENT: Atraumatic Extremities: No cyanosis, Capillary Refill Less than 3 Seconds, No Calf Tenderness - Negative Heraclio and Epperson sign bilateral. Compartments soft to palpate bilateral., Diminished Peripheral Pulses, Edema - Bilateral lower extremity mild to moderate Skin: Ulcer/ Wound - No purulence, erythema, streaking, odor, infection. The peripheral skin is hairless and atrophic. Wound Measurements and Assessment WC - Nurse 1 - General Ulcer Measurement Start: 11/08/18 08:48 Freq: Status: Active Protocol: Activity Type Activity Date Activity User E-Sign Co-Sign Detail Recorded Client Recorded Date Recorded By Document 11/14/18 14:39 [facility] [id number] 11/14/18 14:50 [facility] 11/14/18 14:39 Wound Center Nurse 1 [Ulcer Assessment] #1 Left Lateral lower ext -Combined with other wound No -Current Size (cm) - Length 1.8 -Current Size (cm) - Width 1.1 -Current Size (cm) - Depth 0.1 -Total Square Cm 1.98 -Photo Taken No -Epithelialization Small 1-33% -Tunneling No -Undermining/Tunneling No -Circular Undermining No -Exudate Amt Small -Exudate Type Serosanguineous -Wound Margin Flat & Intact -Granulation Amt Large (67-100%) -Granulation Quality Red -Slough/Fibrin No -Necrosis Amt Small (1-33%) -Necrotic Tissue Type Adherent Slough -Texture (Tiny-wound Skin Appearance) Assessed, Scarring -Moisture (Tiny-wound Skin Appearance Assessed,Dry/ ) Scaly -Color (Tiny-wound Skin Appearance) Assessed -Temperature (Tiny-wound Skin No Abnormality Appearance) (Pt Warm) -Tenderness on Palpation (Tiny-wound No Skin Appearance) -Ulcer Cleansing Rinsed/ Irrigated with Saline -Foul Odor after Cleansing No -Anesthetic Used 4% Lidocaine Solution [Edema Assessment] -Lower Limb Edema Present Yes -Left Calf (cm) 34.8 -Left Ankle (cm) 21 WC - Nurse 2 - General Ulcer CM Notes Start: 11/08/18 08:48 Freq: Status: Active Protocol: Activity Type Activity Date Activity User E-Sign Co-Sign Detail Recorded Client Recorded Date Recorded By Document 11/14/18 15:18 AN [id number] 11/14/18 15:19 AN 11/14/18 15:18 Wound Center Nurse 2 [Procedure/Treatment] #1 Left Lateral lower ext -Time 15:18 -Correct Patient Yes -Correct Side, Site, Position Yes -Correct Procedure Yes -Procedure Performed Yes -Type of Procedure Debridement -Clinical Debridement Subcutaneous -Post Debridement Size (cm) - Length 1.9 -Post Debridement Size (cm) - Width 1.2 -Post Debridement Size (cm) - Depth 0.1 -Total Square Cm 2.28 -Wound/Ulcer Outcome Not Healed -Ulcer Cleansing Rinsed/ Irrigated with Saline -Foul Odor after Cleansing No -Bioengineered Tissue No -Treatment Response Procedure Not Tolerated Well [See Physician Procedure note for Specifics] Pain Scale: 0-10 Numeric [Pain] -Is Patient Pain Free? Yes Musculoskeletal: No Tenderness to Palpation of Joints or Extremities, Muscle Wasting Neurological: Sensory exam intact to light touch and pain Psych/Mental Status: Normal Affect, Appropriate Debridement Note Post-Debridement Measurements/Treatment WC - Nurse 2 - General Ulcer CM Notes Start: 07/11/19 08:48 Freq: Status: Active Protocol: Activity Type Activity Date Activity User E-Sign Co-Sign Detail Recorded Client Recorded Date Recorded By Document 11/08/18 09:42 SILKE [id number] 11/08/18 09:43 Document 11/14/18 15:18 AN [id number] 11/14/18 15:19 AN 11/08/18 11/14/18 09:42 15:18 Wound Center Nurse 2 #1 Left Lateral lower ext -Time 09:42 15:18 -Correct Patient Yes Yes -Correct Side, Site, Position Yes Yes -Correct Procedure Yes Yes -Procedure Performed Yes Yes -Type of Procedure Debridement Debridement -Clinical Debridement Subcutaneous Subcutaneous -Post Debridement Size (cm) - Length 1.9 1.9 -Post Debridement Size (cm) - Width 1.3 1.2 -Post Debridement Size (cm) - Depth 0.1 0.1 -Total Square Cm 2.47 2.28 -Wound/Ulcer Outcome Not Healed Not Healed -Ulcer Cleansing Rinsed/ Rinsed/ Irrigated with Irrigated with Saline Saline -Foul Odor after Cleansing No No -Bioengineered Tissue No No -Bleeding Controlled with Pressure -Offloading No -Treatment Response Procedure Procedure Not Tolerated Well Tolerated Well Pain Scale: 0-10 Numeric Is Patient Pain Free? Yes Yes Wound debrided: lateral leg Laterality: Left Type of Debridement: Excisional debridement Anesthesia Used: 5% Lidocaine Gel Depth: in the subcutaneous layer Percentage of wound debrided: 100 Instrument Used: #15 blade Tissue Removed: fibrous, devitalized subcutaneous, biofiom, slough Severity: Fat Layer Exposed Amount of bleeding with debridement: Mild Bleeding Controlled with: Pressure Patient tolerated procedure well Assessment/Plan Active Problems Ulcer of left lower extremity with fat layer exposed (Chronic) Venous insufficiency (Chronic) Lower extremity edema (Chronic) Pain in left lower leg (Chronic) Assessment: Ulcer left lower leg with fat layer exposed, no infection. Venous insufficiency. Lower extremity edema. Pain left lower leg. Other comorbidities Plan: This patient was carefully examined and evaluated in detail today. A subcutaneous debridement was performed as noted in the clinical panel. Once complete a slightly moistened Aquacel Ag was placed to the base followed by a dry sterile dressing and Tubigrip for compression. Recommend application of advanced wound healing probably, and he thinks. The purpose, indication, plan application and anticipated healing time management were discussed in detail. This is medically necessary for limb salvage. It is noted she has already undergone traditional comprehensive wound healing plan for at least 1 month. Prior authorization will be initiated and she is amenable to proceed. Patient is to have the dressing change in this manner daily with the help of family members. She was instructed to keep the lower extremities elevated all times while seated or lying down. There are no current signs of local infection appreciated today. I do not recommend antibiotics. Patient's lab work was reviewed from her brief stay in the hospital late last month. Her venous Doppler studies were also reviewed. She does not appear to have incompetent veins to bilateral lower extremities. I recommend a diet high in protein to help optimize the patient's ulcer healing potential. Ramón nutritional supplementation was recommended. It was stressed the importance of her getting established with a primary care physician. The patient was educated on all signs and symptoms of local and systemic infection, and she was instructed to go to the emergency room immediately should she notice any of these. All other questions were answered to patient satisfaction. Patient will follow back up in clinic in 1 week.
[2018-11-21 13:54] VITALS: BP 168/108; PULSE 79; RESP 18; TEMP 36.3; BMI 20.7
--- NOTE | 2018-11-21 14:58 | PCM.WC.PN ---
(1) Ulcer of left lower extremity with fat layer exposed Status: Chronic Current Visit: Yes Code(s): L97.922 - Non-pressure chronic ulcer of unspecified part of left lower leg with fat layer exposed (2) Venous insufficiency Status: Chronic Current Visit: Yes Code(s): I87.2 - Venous insufficiency (chronic) (peripheral) (3) Lower extremity edema Status: Chronic Current Visit: Yes Code(s): R60.0 - Localized edema (4) Pain in left lower leg Status: Chronic Current Visit: Yes Code(s): M79.662 - Pain in left lower leg Type of Wound Date of Service: 11/23/18 Chief Complaint: left lower leg ulcer History of Wound: This 73-year-old female presents to the wound healing center today for left lower leg ulcer. She tries to wear compression dressing and elevates her legs. She had venous reflux studies performed. She currently denies any feelings of nausea, vomiting, fever, chills. Progress of Wound: Stable - Physical Exam Vital Signs Temp Pulse Resp BP 97.4 F L 79 18 168/108 H 11/21/18 13:54 11/21/18 13:54 11/21/18 13:54 11/21/18 13:54 General: Alert, Oriented x3, Cooperative, No apparent distress Extremities: No cyanosis, No edema, Capillary Refill Less than 3 Seconds, No Calf Tenderness - Negative Heraclio and Epperson sign, Diminished Peripheral Pulses Skin: Ulcer/ Wound - No purulence, erythema, string, odor, infection. The peripheral skin is hairless and atrophic Wound Measurements and Assessment WC - Nurse 1 - General Ulcer Measurement Start: 11/08/18 08:48 Freq: Status: Active Protocol: Activity Type Activity Date Activity User E-Sign Co-Sign Detail Recorded Client Recorded Date Recorded By Document 11/21/18 13:54 DL [id number] 11/21/18 14:00 DL 11/21/18 13:54 Wound Center Nurse 1 [Ulcer Assessment] #1 Left Lateral lower ext -Current Size (cm) - Length 0.4 -Current Size (cm) - Width 0.3 -Current Size (cm) - Depth 0.1 -Total Square Cm 0.12 -Photo Taken No -Exudate Amt None Present -Granulation Amt Large (67-100%) -Granulation Quality [place] -Necrosis Amt Small (1-33%) -Necrotic Tissue Type Adherent Slough -Structure Exposed N/A -Texture (Tiny-wound Skin Appearance) Scarring -Moisture (Tiny-wound Skin Appearance Dry/Scaly ) -Color (Tiny-wound Skin Appearance) Rubor -Temperature (Tiny-wound Skin No Abnormality Appearance) (Pt Warm) -Tenderness on Palpation (Tiny-wound No Skin Appearance) -Ulcer Cleansing Rinsed/ Irrigated with Saline -Foul Odor after Cleansing No -Anesthetic Used 5% Lidocaine Gel [Edema Assessment] -Left Calf (cm) 33 -Point of measurement (cm from the 19.3 medial instep) WC - Nurse 2 - General Ulcer CM Notes Start: 11/08/18 08:48 Freq: Status: Active Protocol: Activity Type Activity Date Activity User E-Sign Co-Sign Detail Recorded Client Recorded Date Recorded By Document 11/21/18 14:43 AN [id number] 11/21/18 14:44 AN 11/21/18 14:43 Wound Center Nurse 2 [Procedure/Treatment] #1 Left Lateral lower ext -Time 14:43 -Correct Patient Yes -Correct Side, Site, Position Yes -Correct Procedure Yes -Procedure Performed Yes -Type of Procedure Debridement -Clinical Debridement Subcutaneous -Post Debridement Size (cm) - Length 0.5 -Post Debridement Size (cm) - Width 0.4 -Post Debridement Size (cm) - Depth 0.1 -Total Square Cm 0.20 -Wound/Ulcer Outcome Not Healed -Foul Odor after Cleansing No -Bioengineered Tissue No -Bleeding Controlled with Pressure -Offloading No -Treatment Response Procedure Tolerated Well [See Physician Procedure note for Specifics] Pain Scale: 0-10 Numeric [Pain] -Is Patient Pain Free? Yes Musculoskeletal: No Tenderness to Palpation of Joints or Extremities, Muscle Wasting Neurological: Sensory exam intact to light touch and pain Psych/Mental Status: Normal Affect, Appropriate Debridement Note Post-Debridement Measurements/Treatment WC - Nurse 2 - General Ulcer CM Notes Start: 11/08/18 08:48 Freq: Status: Active Protocol: Activity Type Activity Date Activity User E-Sign Co-Sign Detail Recorded Client Recorded Date Recorded By Document 11/08/18 09:42 [id number] 11/08/18 09:43 Document 11/14/18 15:18 AN [id number] 11/14/18 15:19 AN Document 11/21/18 14:43 AN [id number] 11/21/18 14:44 AN 11/08/18 11/14/18 11/21/18 09:42 15:18 14:43 Wound Center Nurse 2 #1 Left Lateral lower ext -Time 09:42 15:18 14:43 -Correct Patient Yes Yes Yes -Correct Side, Site, Position Yes Yes Yes -Correct Procedure Yes Yes Yes -Procedure Performed Yes Yes Yes -Type of Procedure Debridement Debridement Debridement -Clinical Debridement Subcutaneous Subcutaneous Subcutaneous -Post Debridement Size (cm) - Length 1.9 1.9 0.5 -Post Debridement Size (cm) - Width 1.3 1.2 0.4 -Post Debridement Size (cm) - Depth 0.1 0.1 0.1 -Total Square Cm 2.47 2.28 0.20 -Wound/Ulcer Outcome Not Healed Not Healed Not Healed -Ulcer Cleansing Rinsed/ Rinsed/ Irrigated with Irrigated with Saline Saline -Foul Odor after Cleansing No No No -Bioengineered Tissue No No No -Bleeding Controlled with Pressure Pressure -Offloading No No -Treatment Response Procedure Procedure Not Procedure Tolerated Well Tolerated Well Tolerated Well Pain Scale: 0-10 Numeric Is Patient Pain Free? Yes Yes Yes Wound debrided: leg Laterality: Left Type of Debridement: Excisional debridement Anesthesia Used: 5% Lidocaine Gel Depth: in the subcutaneous layer Percentage of wound debrided: 100 Instrument Used: #15 blade Tissue Removed: fibrous, devitalized subcutaneous, biofilm, slough Severity: Fat Layer Exposed Amount of bleeding with debridement: Mild Bleeding Controlled with: Pressure Patient tolerated procedure well Assessment/Plan Active Problems Ulcer of left lower extremity with fat layer exposed (Chronic) Venous insufficiency (Chronic) Lower extremity edema (Chronic) Pain in left lower leg (Chronic) Assessment: Ulcer left lower leg with fat layer exposed, no infection. Venous insufficiency. Lower extremity edema. Pain left lower leg. Other comorbidities Plan: This patient was carefully examined and evaluated in detail today. A subcutaneous debridement was performed as noted in the clinical panel. Once complete a slightly moistened Aquacel Ag was placed to the base followed by a dry sterile dressing and Tubigrip for compression. Recommend application of advanced wound healing probably, epi-fix. The purpose, indication, plan application and anticipated healing time management were discussed in detail. This is medically necessary for limb salvage. It is noted she has already undergone traditional comprehensive wound healing plan for at least 1 month. Prior authorization will be initiated and she is amenable to proceed. Patient is to have the dressing change in this manner daily with the help of family members. She was instructed to keep the lower extremities elevated all times while seated or lying down. There are no current signs of local infection appreciated today. I do not recommend antibiotics. Patient's lab work was reviewed from her brief stay in the hospital late last month. Her venous Doppler studies were also reviewed. She does not appear to have incompetent veins to bilateral lower extremities. I recommend a diet high in protein to help optimize the patient's ulcer healing potential. Ramón nutritional supplementation was recommended. It was stressed the importance of her getting established with a primary care physician. The patient was educated on all signs and symptoms of local and systemic infection, and she was instructed to go to the emergency room immediately should she notice any of these. All other questions were answered to patient satisfaction. Patient will follow back up in clinic in 1 week.
[2018-11-28 15:13] VITALS: BP 152/76; PULSE 75; RESP 18; TEMP 36.5; BMI 20.7
--- NOTE | 2018-11-28 15:49 | PN.PCM_ITS ---
(1) Ulcer of left lower extremity with fat layer exposed Status: Resolved Code(s): L97.922 - Non-pressure chronic ulcer of unspecified part of left lower leg with fat layer exposed (2) Venous insufficiency Status: Chronic Code(s): I87.2 - Venous insufficiency (chronic) (peripheral) (3) Lower extremity edema Status: Chronic Code(s): R60.0 - Localized edema (4) Pain in left lower leg Status: Chronic Code(s): M79.662 - Pain in left lower leg Type of Wound Date of Service: 11/28/18 Chief Complaint: left lower leg ulcer History of Wound: This 73-year-old female presents to the wound healing center today for left lower leg ulcer. She tries to wear compression dressing and elevates her legs. She had venous reflux studies performed. She currently denies any feelings of nausea, vomiting, fever, chills. She denies drainage the past 4 days. Progress of Wound: Healed - Physical Exam Vital Signs Temp Pulse Resp BP 97.7 F L 75 18 152/76 H 11/28/18 15:13 11/28/18 15:13 11/28/18 15:13 11/28/18 15:13 General: Alert, Oriented x3, Cooperative, No apparent distress Extremities: No cyanosis, Capillary Refill Less than 3 Seconds, No Calf Tenderness - Negative Heraclio and Epperson sign bilateral, Diminished Peripheral Pulses, Edema - Decreased Skin: Ulcer/ Wound - No purulence, erythema, streaking, odor, infection. Full epithelialization is noted in the ulcer site is healed. The skin is atrophic. Wound Measurements and Assessment WC - Nurse 1 - General Ulcer Measurement Start: 11/08/18 08:48 Freq: Status: Active Protocol: Activity Type Activity Date Activity User E-Sign Co-Sign Detail Recorded Client Recorded Date Recorded By Document 11/28/18 15:13 RB [id number] 11/28/18 15:16 RB 11/28/18 15:13 Wound Center Nurse 1 [Ulcer Assessment] #1 Left Lateral lower ext -Combined with other wound No -Current Size (cm) - Length 0 -Current Size (cm) - Width 0 -Current Size (cm) - Depth 0 -Total Square Cm 0 -Photo Taken Yes -Epithelialization Large 67-100% -Exudate Amt None Present -Wound Margin Flat & Intact -Granulation Amt Large (67-100%) -Granulation Quality [place] -Slough/Fibrin No -Necrosis Amt None Present (0 %) -Texture (Tiny-wound Skin Appearance) Assessed -Moisture (Tiny-wound Skin Appearance Assessed ) -Color (Tiny-wound Skin Appearance) Assessed -Temperature (Tiny-wound Skin No Abnormality Appearance) (Pt Warm) -Tenderness on Palpation (Tiny-wound No Skin Appearance) -Ulcer Cleansing Rinsed/ Irrigated with Saline -Foul Odor after Cleansing No [Edema Assessment] -Lower Limb Edema Present Yes -Left Calf (cm) 35 -Left Ankle (cm) 21.5 WC - Nurse 2 - General Ulcer CM Notes Start: 11/08/18 08:48 Freq: Status: Active Protocol: Activity Type Activity Date Activity User E-Sign Co-Sign Detail Recorded Client Recorded Date Recorded By Document 11/28/18 15:45 AN [id number] 11/28/18 15:45 AN 11/28/18 15:45 Pain Scale: 0-10 Numeric [Pain] -Is Patient Pain Free? Yes Musculoskeletal: No Tenderness to Palpation of Joints or Extremities, Muscle Wasting Psych/Mental Status: Normal Affect, Appropriate Debridement Note Post-Debridement Measurements/Treatment - Nurse 2 - General Ulcer CM Notes Start: 11/08/18 08:48 Freq: Status: Active Protocol: Activity Type Activity Date Activity User E-Sign Co-Sign Detail Recorded Client Recorded Date Recorded By Document 11/08/18 09:42 [id number] 11/08/18 09:43 Document 11/14/18 15:18 AN [id number] 11/14/18 15:19 AN Document 11/21/18 14:43 AN [id number] 11/21/18 14:44 AN Document 11/28/18 15:45 AN [id number] 11/28/18 15:45 AN 11/08/18 11/14/18 11/21/18 09:42 15:18 14:43 Wound Center Nurse 2 #1 Left Lateral lower ext -Time 09:42 15:18 14:43 -Correct Patient Yes Yes Yes -Correct Side, Site, Position Yes Yes Yes -Correct Procedure Yes Yes Yes -Procedure Performed Yes Yes Yes -Type of Procedure Debridement Debridement Debridement -Clinical Debridement Subcutaneous Subcutaneous Subcutaneous -Post Debridement Size (cm) - Length 1.9 1.9 0.5 -Post Debridement Size (cm) - Width 1.3 1.2 0.4 -Post Debridement Size (cm) - Depth 0.1 0.1 0.1 -Total Square Cm 2.47 2.28 0.20 -Wound/Ulcer Outcome Not Healed Not Healed Not Healed -Ulcer Cleansing Rinsed/ Rinsed/ Irrigated with Irrigated with Saline Saline -Foul Odor after Cleansing No No No -Bioengineered Tissue No No No -Bleeding Controlled with Pressure Pressure -Offloading No No -Treatment Response Procedure Procedure Not Procedure Tolerated Well Tolerated Well Tolerated Well Pain Scale: 0-10 Numeric Is Patient Pain Free? Yes Yes Yes 11/28/18 15:45 Wound Center Nurse 2 #1 Left Lateral lower ext -Time -Correct Patient -Correct Side, Site, Position -Correct Procedure -Procedure Performed -Type of Procedure -Clinical Debridement -Post Debridement Size (cm) - Length -Post Debridement Size (cm) - Width -Post Debridement Size (cm) - Depth -Total Square Cm -Wound/Ulcer Outcome -Ulcer Cleansing -Foul Odor after Cleansing -Bioengineered Tissue -Bleeding Controlled with -Offloading -Treatment Response Pain Scale: 0-10 Numeric Is Patient Pain Free? Yes No debridement was completed today - healed Assessment/Plan Assessment: Ulcer left lower leg -healed. Venous insufficiency. Lower extremity edema. Pain left lower leg resolved. Other comorbidities Plan: This patient was carefully examined and evaluated in detail today. Debridement was not performed today because the ulcer site is healed. To discontinue dressing care and nutritional supplementation. To monitor for recurrence or infection in which neither is noted today. Skin integrity intact by daily moisturization schedule. To continue Tubigrip until she obtains 20 to 30 mmHg compression stockings; a prescription was provided. She is discharged from the wound healing center at this time. I answer all of her questions. To return if needed.
== END 2018-11-28 23:59 ==
LOC: WC 15:15
PROVIDERS: Visit Provider Podiatrist
DX: I87.2 Venous insufficiency (chronic) (peripheral) (principal); R60.0 Localized edema; L97.822 Non-pressure chronic ulcer of other part of left lower leg with fat layer exposed; M79.662 Pain in left lower leg
CPT/HCPCS: 11042; 99212; 99213; G0463

== ENCOUNTER 2021-12-29 13:23 | Outpatient (RCR) | payer MEDICARE, MEDICAID, SELFPAY ==
[2021-12-29 13:37] VITALS: BP 169/87; PULSE 79; TEMP 36.3
--- NOTE | 2021-12-29 16:06 | HP.PCM_ITS ---
History of Present Illness Date of Service: 12/29/21 Chief Complaint: Right lower leg excoriation, drainage and edema. History of Wound: Patient is a 76-year-old female who presents with bilateral lower extremity edema and excoriation on her right leg. She has seen her PCP for this issue who started her on Bactrim which she finishes today. She states that this started a month or so ago. She has not been wearing any compression. She has had drainage from her right leg. She has a history of lower extremity wounds and had a venous doppler 11/16 which showed no valvular incompetence. She often sleeps in a chair. She has a history glaucoma, cellulitis, venous insufficiency, newly diagnosed DM and leg ulcers. She denies fever, chills, nausea or vomiting. She states her appetite is good. Progress of Wound: Bilateral lower extremity edema. Right leg erythema and excoriation that is weepy with serous drainage. Her left leg is also red from edema. Her bilateral toe nails are very long, but have not caused any ulcers yet. [facility] Medical History (Updated 12/31/21 @ 12:23 by Britney Beck [employer] OPERATING ENGINEER, HEAV[employer]IPMENT OPERATING ENGINEER-C) Glaucoma Lower extremity edema Pain in left lower leg Ulcer of left lower extremity with fat layer exposed Venous insufficiency Home Medications latanoprost 0.005 % eye drops 1 drp EACH EYE QHS glaucoma 10/23/18 [History Last Taken 10/22/18] timolol maleate 0.5 % eye drops 1 drp EACH EYE DAILY glaucoma 10/23/18 [History Last Taken 10/23/18] Allergy/AdvReac Type Severity Reaction Status Date / Time No Known Allergies Allergy Verified 10/23/18 18:39 Social History (Reviewed 12/31/21 @ 12:08 by Britney Beck [employer] E[employer]IPMENT OPERATING ENGINEER, HEAVY EQUIPMENT OPERATING ENGINEER-C) Smoking Status: Former smoker ROS Constitutional Constitutional: Denies fever(s) or frequent falls Eyes Eyes: Reports requires corrective lenses and other Details: Glaucoma ENT HEENT: Reports systems reviewed and no addt'l complaints, except as documented Cardiovascular Cardiovascular: Reports pedal edema; Denies chest pain or dyspnea Respiratory/Chest Respiratory/Chest: Denies cough or dyspnea Gastrointestinal Gastrointestinal: Reports none Musculoskeletal Musculoskeletal: Reports systems reviewed and no addt'l complaints, except as documented Integumentary Integumentary: Reports skin swelling and other Details: right leg excoriation Neurologic Neurologic: Reports systems reviewed and no addt'l complaints, except as documented Psychiatric Psychiatric: Reports systems reviewed and no addt'l complaints, except as documented Vital Signs Vital Signs Vital Signs: 12/29/21 13:37 Temperature 97.4 F L Temperature Source Temporal Pulse Rate 79 Blood Pressure 169/87 H Blood Pressure Mean 114 Blood Pressure Source Monitor Blood Pressure Position Semi-Fowlers Blood Pressure Location Left Arm Physical Exam Const alert, oriented x3 and no apparent distress General Appearance: cooperative HEENT normocephalic Eyes PERRL Neck full ROM Resp normal respiratory effort and normal air movement Effort and Inspection: able to speak in complete sentences Auscultation: clear to auscultation bilaterally Cardio regular rate and regular rhythm Peripheral Pulses: dorsalis pedis pulses present bilateral 1+ GI normal to inspection, nondistended, normoactive bowel sounds, soft to palpation and non-tender Extremity normal capillary refill Extremity Narrative: Bilateral +3 pitting edema bilateral lower extremity. She has very long toe nails that are starting to curl and thicken. There are no ulcers as of yet from her long toe nails. They are painful to palpation. Skin Skin Narrative: Right lower leg is red, +3 edema, weeping clear fluid and excoriated. The areas of excoriation is diffuse and painful. Neuro oriented x3 Sensorium / Orientation: awake Psych cooperative Debridement Note Debridement Note Wound debrided: Leg excoriation Laterality: Right Type of Debridement: Selective debridement Depth: Down to and including healthy tissue Percentage of wound debrided: 100 Instrument Used: - (Moistened gauze) Tissue Removed: Non viable tissue Severity: Limited To Skin Breakdown Amount of bleeding with debridement: None Patient tolerated procedure: Patient tolerated procedure well Post-Debridement Measurements and Additional Note: Post-Debridement Measurements/Treatment MARY - Nurse 1 - General Ulcer Assessment Start: 12/29/21 13:36 Freq: Status: Active Protocol: MK Activity Type Activity Date Activity User E-sign Co-sign Detail Recorded Client Recorded Date Recorded By Document 12/29/21 13:37 DENIA [id number] 12/29/21 13:43 DENIA 12/29/21 13:37 MARY - Today's Visit Information Type of service Initial Visit Arrival Mode Ambulatory Patient Identification Verified (Name & Yes ) Vital Signs Temperature (97.8 F-99.1 F) 97.4 F L Temperature Source Temporal Pulse Rate (60-100) 79 Pulse Location Monitor Blood Pressure (90/60-120/80) 169/87 H Blood Pressure Mean 114 Source Monitor Position Semi-Fowlers Blood Pressure Location Left Arm History Since Last Visit- (Skip if this is Patient's initial visit) Have you changed medications since your No last visit? Any new allergies or adverse reactions No Had a fall/change in ADL's that may No increase risk of falls Signs or symptoms of abuse and/or No neglect since last visit Have you been in the hospital since your No last visit? Has dressing in place as prescribed Yes Has compression in place as prescribed Yes Has offloadiing in place as prescribed N/A Experienced any changes in pain level or No management Left Footwear Regular Shoe Right Footwear Regular Shoe Pain Scale: 0-10 Numeric Is Patient Pain Free? Yes WC - Nurse 1 - General Ulcer Measurement Start: 12/29/21 13:36 Freq: Status: Active Protocol: Activity Type Activity Date Activity User E-sign Co-sign Detail Recorded Client Recorded Date Recorded By Document 12/29/21 13:37 KR [id number] 12/29/21 13:43 KR 12/29/21 13:37 Wound Center Nurse 1 Right Calf (cm) 37.2 Right Ankle (cm) 23.5 Left Calf (cm) 35 Left Ankle (cm) 24.2 WC - Nurse 2 - General Ulcer CM Notes Start: 12/29/21 13:36 Freq: Status: Active Protocol: Activity Type Activity Date Activity User E-sign Co-sign Detail Recorded Client Recorded Date Recorded By Document 12/29/21 13:58 MW [id number] 12/29/21 14:09 MW Edit Result 12/29/21 13:58 MW (1) [id number] 12/29/21 14:15 MW (1) #2 right lower leg excoriation - Time => 14:14 - Correct Patient => Yes - Correct Side, Site, Position => Yes - Correct Procedure => Yes - Procedure Performed => Yes - Type of Procedure => Debridement - Clinical Debridement => Epidermis / Dermis - Tissue Removed => Epidermis - Post Debridement (cm) - Length => 24.0 - Post Debridement (cm) - Width => 21.0 - Post Debridement (cm) - Depth => 0.1 - Total Square (Post) (cm) => 504.00 - Area of Debridement (cm) - Length => 24.0 - Area of Debridement (cm) - Width => 21.0 - Total Square (Area) (cm) => 504.00 - Tunneling => No - Undermining/Tunneling => No - Circular Undermining => No - Wound/Ulcer Outcome => Not Healed - Ulcer Cleansing => Rinsed/Irrigated => with Saline - Foul Odor after Cleansing => No - Bioengineered Tissue => No - Bleeding Controlled with => Pressure - Treatment Response => Procedure => Tolerated Well - Offloading => No - Debridement - Open, 1st 20sq cm => Yes - Debridement, Open, ea addt'l 20sq cm => 11 or part thereof 12/29/21 13:58 Wound Center Nurse 2 #2 right lower leg excoriation -Time 14:14 -Correct Patient Yes -Correct Side, Site, Position Yes -Correct Procedure Yes -Procedure Performed Yes -Type of Procedure Debridement -Clinical Debridement Epidermis / Dermis -Tissue Removed Epidermis -Post Debridement (cm) - Length 24.0 -Post Debridement (cm) - Width 21.0 -Post Debridement (cm) - Depth 0.1 -Total Square (Post) (cm) 504.00 -Area of Debridement (cm) - Length 24.0 -Area of Debridement (cm) - Width 21.0 -Total Square (Area) (cm) 504.00 -Tunneling No -Undermining/Tunneling No -Circular Undermining No -Wound/Ulcer Outcome Not Healed -Ulcer Cleansing Rinsed/ Irrigated with Saline -Foul Odor after Cleansing No -Bioengineered Tissue No -Bleeding Controlled with Pressure -Treatment Response Procedure Tolerated Well -Offloading No -Debridement - Open, 1st 20sq cm Yes -Debridement, Open, ea addt'l 20sq cm 11 or part thereof Pain Scale: 0-10 Numeric Is Patient Pain Free? Yes WC - Nurse 3 - General Ulcer D/C NN Start: 12/29/21 13:36 Freq: Status: Active Protocol: Activity Type Activity Date Activity User E-sign Co-sign Detail Recorded Client Recorded Date Recorded By Document 12/29/21 14:26 KAROLINE [id number] 12/29/21 14:26 AK Document 12/29/21 14:27 OK [id number] 12/29/21 14:28 AK 12/29/21 12/29/21 14:26 14:27 Wound Care Nurse 3 #2 right lower leg excoriation -Primary Dressing Applied Optilok 8x12 -Other Dressing Lottie did wraps -Optilok 8x12 1 bilateral LE -Lotion applied to leg before No compression wrap -Multi-Layered Wrap Application Unna Boot - Bilateral ($) -Unna Boots (Bilat) ($) 2 Pain Scale: 0-10 Numeric Is Patient Pain Free? Yes Yes WC - Visit Discharge Discharge Condition Stable Ambulatory Status Ambulatory Transportation Private Auto Accompanied by dil Medication Reconcilliation completed & Yes provided to patient/care provider Clinical Summary of Care Provided Yes Charges/Coding Addendum Addendum: Selective debridement 42508 Visit Charges Office Visits / Consults: 27568 OV L3 Est (25 modifier) Assessment/Plan Assessment/Plan (1) Excoriation of right lower leg: CODE(S): S80.811A - Abrasion, right lower leg, initial encounter (2) Cellulitis of right lower leg: CODE(S): L03.115 - Cellulitis of right lower limb (3) Lower extremity edema: CODE(S): R60.0 - Localized edema (4) Venous insufficiency: CODE(S): I87.2 - Venous insufficiency (chronic) (peripheral) PLAN: Plan Patient was evaluated at the wound center today. A selective debridement was performed with moistened gauze to remove the sloughing skin so a wound culture could be obtained. Bilateral legs are erythematous and edematous +3 but only the right leg is excoriated and oozing serous fluid. Instructed her to keep her legs elevated when sitting and lying flat. She should avoid standing for long periods of time. Wound culture obtained today 12/29/21, depending on the results of the culture it may necessitate the need for treatment with antibiotics. She finishes her Bactrim that her PCP prescribed for her today. Wound care with Unna boots bilaterally with super absorber on the right leg to help control the drainage. She will come in on Monday for a nurse's visit to have the Unna boots changed and make sure she is tolerating them well. Instructed her that she needs to see podiatry DILCIA to get her toe nails trimmed before they cause her to have an ulcer. She states she has an appointment with one in [facility]. Follow up one week with me.
== END 2021-12-29 23:59 | disposition home or self-care (01) ==
LOC: WC 13:23
PROVIDERS: PCP Student in an Organized Health Care Education/Training Program; Visit Provider Nurse Practitioner Family
DX: E11.621 Type 2 diabetes mellitus with foot ulcer (principal); L97.902 Non-pressure chronic ulcer of unspecified part of unspecified lower leg with fat layer exposed; S80.811A Abrasion, right lower leg, initial encounter; X58.XXXA Exposure to other specified factors, initial encounter; I87.2 Venous insufficiency (chronic) (peripheral); L03.115 Cellulitis of right lower limb; R60.0 Localized edema; H40.9 Unspecified glaucoma; Z79.899 Other long term (current) drug therapy; Z87.891 Personal history of nicotine dependence
CPT/HCPCS: 29580; 87070; 87075; 87077; 87186; 87205; 97597; 97598; 99213; G0463

== ENCOUNTER 2022-01-26 14:15 | Outpatient (RCR) | payer MEDICARE, MEDICAID, SELFPAY ==
[2021-12-30 00:49] VITALS: BP 169/87; PULSE 79; TEMP 36.3
[2021-12-31 13:48] VITALS: BP 132/74; PULSE 87; TEMP 36.1
[2022-01-05 14:25] VITALS: BP 145/74; TEMP 36
--- NOTE | 2022-01-05 16:29 | PN.PCM_ITS ---
History of Present Illness Date of Service: 01/05/22 Chief Complaint: Right lower leg excoriation, drainage and edema. History of Wound: Patient is a 76-year-old female who presents with bilateral lower extremity edema and excoriation on her right leg. She has seen her PCP for this issue who started her on Bactrim which she finishes today. She states that this started a month or so ago. She has not been wearing any compression. She has had drainage from her right leg. She has a history of lower extremity wounds and had a venous doppler 11/16 which showed no valvular incompetence. She often sleeps in a chair. She has a history glaucoma, cellulitis, venous insufficiency, newly diagnosed DM and leg ulcers. She denies fever, chills, nausea or vomiting. She states her appetite is good. Progress of Wound: Right medial leg ulcer is stable. She continues to have significant erythema of her right leg. The unna boots have helped decrease her edema. Her left leg erythema is much improved. Objective Data Objective Data Vital Signs: Vital Signs Temp Pulse BP 96.8 F L 87 145/74 H 01/05/22 14:25 12/31/21 13:48 01/05/22 14:25 Charges/Coding Procedures Integumentary 111xxx-113xx: 22141 Alessia subq tissue 20 sq cm/< Physical Exam Const alert, oriented x3 and no apparent distress General Appearance: cooperative HEENT normocephalic Neck full ROM Resp normal respiratory effort Effort and Inspection: able to speak in complete sentences Cardio regular rate Peripheral Pulses: dorsalis pedis pulses present bilateral 1+ GI normal to inspection, nondistended, normoactive bowel sounds, soft to palpation and non-tender Extremity normal capillary refill Extremity Narrative: Bilateral +2 edema bilateral lower extremity. She has very long toe nails that are starting to curl and thicken. There are no ulcers as of yet from her long toe nails. They are painful to palpation. Skin Skin Narrative: Right lower leg is red, +2 edema, the weeping has improved as her edema has decreased. Wound Narrative: She has an ulcer on her right medial leg that is pink, weeping and very tender to palpation. Neuro oriented x3 Sensorium / Orientation: awake Psych cooperative Debridement Note Debridement Note Wound debrided: medial leg ulcer Laterality: Right Wound Grade/Stage: Stage II Type of Debridement: Excisional debridement Anesthesia Used: 5% Lidocaine Gel Depth: Down to and including healthy tissue and in the subcutaneous layer Percentage of wound debrided: 100 Instrument Used: 3mm curette Tissue Removed: Devitalized tissue and slough Severity: Fat Layer Exposed Amount of bleeding with debridement: Mild Bleeding Controlled with: Compression and gauze Patient tolerated procedure: Patient tolerated procedure well Post-Debridement Measurements and Additional Note: Post-Debridement Measurements/Treatment - Nurse 1 - General Ulcer Assessment Start: 12/31/21 13:48 Freq: Status: Active Protocol: MK Activity Type Activity Date Activity User E-sign Co-sign Detail Recorded Client Recorded Date Recorded By Document 12/31/21 13:48 KR [id number] 12/31/21 13:59 KR Document 01/05/22 14:25 KR [id number] 01/05/22 14:31 KR 12/31/21 01/05/22 13:48 14:25 - Today's Visit Information Type of service Nurse-only Follow-up Visit Visit (Physician/ADOLESCENT PSYCHIATRIST ) Arrival Mode Ambulatory Ambulatory Patient Identification Verified (Name & Yes Yes ) Vital Signs Temperature (97.8 F-99.1 F) 97.0 F L 96.8 F L Temperature Source Temporal Temporal Pulse Rate (60-100) 87 Pulse Location Monitor Monitor Blood Pressure (90/60-120/80) 132/74 H 145/74 H Blood Pressure Mean (mm Hg) 93 97 Source Monitor Monitor Position Semi-Fowlers Semi-Fowlers Blood Pressure Location Left Arm Left Arm History Since Last Visit- (Skip if this is Patient's initial visit) Have you changed medications since your No No last visit? Any new allergies or adverse reactions No No Had a fall/change in ADL's that may No No increase risk of falls Signs or symptoms of abuse and/or No No neglect since last visit Have you been in the hospital since your No No last visit? Has dressing in place as prescribed Yes Yes Has compression in place as prescribed Yes Yes Has offloadiing in place as prescribed N/A N/A Experienced any changes in pain level or No No management Left Footwear Regular Shoe Regular Shoe Right Footwear Regular Shoe Regular Shoe Pain Scale: 0-10 Numeric Is Patient Pain Free? Yes Yes WC - Nurse 1 - General Ulcer Measurement Start: 12/31/21 13:48 Freq: Status: Active Protocol: Activity Type Activity Date Activity User E-sign Co-sign Detail Recorded Client Recorded Date Recorded By Document 01/05/22 14:25 KR [id number] 01/05/22 14:31 KR 01/05/22 14:25 Wound Center Nurse 1 #2 right medial LE -Texture (Tiny-wound Skin Appearance) Scarring -Moisture (Tiny-wound Skin Appearance) Weeping Right Calf (cm) 35 Right Ankle (cm) 23 Left Calf (cm) 35 Left Ankle (cm) 21 WC - Nurse 2 - General Ulcer CM Notes Start: 12/31/21 13:48 Freq: Status: Active Protocol: Activity Type Activity Date Activity User E-sign Co-sign Detail Recorded Client Recorded Date Recorded By Document 01/05/22 14:45 MW [id number] 01/05/22 14:51 MW 01/05/22 14:45 Wound Center Nurse 2 #2 right medial LE -Time 14:45 -Correct Patient Yes -Correct Side, Site, Position Yes -Correct Procedure Yes -Procedure Performed Yes -Type of Procedure Debridement -Clinical Debridement Subcutaneous -Tissue Removed Subcutaneous -Post Debridement (cm) - Length 1.5 -Post Debridement (cm) - Width 0.8 -Post Debridement (cm) - Depth 0.1 -Total Square (Post) (cm) 1.20 -Area of Debridement (cm) - Length 1.5 -Area of Debridement (cm) - Width 0.8 -Total Square (Area) (cm) 1.20 -Tunneling No -Undermining/Tunneling No -Circular Undermining No -Wound/Ulcer Outcome Not Healed -Ulcer Cleansing Rinsed/ Irrigated with Saline -Foul Odor after Cleansing No -Bioengineered Tissue No -Bleeding Controlled with Pressure -Treatment Response Procedure Tolerated Well -Offloading No -Debridement - Subq, 1st 20sq cm Yes Pain Scale: 0-10 Numeric Is Patient Pain Free? Yes - Nurse 3 - General Ulcer D/C NN Start: 12/31/21 13:48 Freq: Status: Active Protocol: Activity Type Activity Date Activity User E-sign Co-sign Detail Recorded Client Recorded Date Recorded By Document 12/31/21 13:48 KR [id number] 12/31/21 13:59 KR Document 01/05/22 15:43 AK [id number] 01/05/22 15:44 AK 12/31/21 01/05/22 13:48 15:43 Vital Signs Temperature (97.8 F-99.1 F) 97.0 F L Temperature Source Temporal Pulse Rate (60-100) 87 Pulse Location Monitor Blood Pressure (90/60-120/80) 132/74 H Blood Pressure Mean (mm Hg) 93 Source Monitor Position Semi-Fowlers Blood Pressure Location Left Arm Pain Scale: 0-10 Numeric Is Patient Pain Free? Yes Yes Wound Care Nurse 3 #2 right medial LE -Ulcer Cleansing Rinsed/ Irrigated with Saline -Foul Odor after Cleansing No -Negative Pressure Wound Therapy N/A -Primary Dressing Applied Optilok 6.5x10 -Optilok 6.5x10 1 Left -Multi-Layered Wrap Application Unna Boot - Unna Boot - Bilateral ($) Right ($) -Unna Boots (Bilat) ($) 2 WC - Visit Discharge Discharge Condition Stable Stable Ambulatory Status Ambulatory Ambulatory Transportation Private Auto Private Auto Accompanied by son Medication Reconcilliation completed & Yes provided to patient/care provider Clinical Summary of Care Provided Yes Assessment/Plan Assessment/Plan (1) Ulcer of right lower extremity with fat layer exposed: CODE(S): L97.912 - Non-pressure chronic ulcer of unspecified part of right lower leg with fat layer exposed (2) Excoriation of right lower leg: CODE(S): S80.811A - Abrasion, right lower leg, initial encounter (3) Cellulitis of right lower leg: CODE(S): L03.115 - Cellulitis of right lower limb (4) Lower extremity edema: CODE(S): R60.0 - Localized edema (5) Venous insufficiency: CODE(S): I87.2 - Venous insufficiency (chronic) (peripheral) PLAN: Plan Patient was evaluated at the wound center today. A subcutaneous debridement was performed today. Her edema has improved with the Unna boots for compression. Her right leg continues to be erythematous. Wound care - Silver alginate to the right medial leg ulcer with super absorber, then apply Unna boots bilaterally. Instructed her to keep her legs elevated when sitting and lying flat. She should avoid standing for long periods of time. Wound culture obtained 12/29/21 which was positive for Streptococcus group A, Stenotrophomonas maltophilia, Acinetobacter haemolyticus and Corynebacterium striatum. Will treat her with Augmentin and Levaquin along with a probiotic. She will come in on Monday for a nurse's visit to have the Unna boots changed. She is going out of town over the weekend, I instructed her that she needs to get out of the car hourly to walk around to help with her edema and prevent blood clots. She has a podiatry appointment next to get her toe nails trimmed. Follow up one week with me.
[2022-01-07 13:49] VITALS: BP 135/70; PULSE 64; RESP 18; TEMP 36.1
[2022-01-19 14:04] VITALS: BP 180/77; PULSE 79; RESP 16; TEMP 36.6
--- NOTE | 2022-01-19 14:57 | PCM.WC.PN ---
History of Present Illness Date of Service: 01/19/22 Chief Complaint: Right lower leg excoriation, drainage and edema. History of Wound: Patient is a 76-year-old female who presents with bilateral lower extremity edema and excoriation on her right leg. She has seen her PCP for this issue who started her on Bactrim which she finishes today. She states that this started a month or so ago. She has not been wearing any compression. She has had drainage from her right leg. She has a history of lower extremity wounds and had a venous doppler 11/16 which showed no valvular incompetence. She often sleeps in a chair. She has a history glaucoma, cellulitis, venous insufficiency, newly diagnosed DM and leg ulcers. She denies fever, chills, nausea or vomiting. She states her appetite is good. Progress of Wound: Right leg is excoriated with peeling plaques and areas of shiny redness that drains. The unna boots have helped decrease her edema. She completed the antibiotics but they did upset her stomach. Objective Data Objective Data Vital Signs: Vital Signs Temp Pulse Resp BP O2 Del Method 97.8 F 79 16 180/77 H Room Air 01/19/22 14:04 01/19/22 14:04 01/19/22 14:04 01/19/22 14:04 01/19/22 14:04 Oxygen Delivery Method Room Air Charges/Coding Addendum Addendum: Selective debridement 76178 and 37625 x 1 Physical Exam Const alert, oriented x3 and no apparent distress General Appearance: cooperative HEENT normocephalic Neck full ROM Resp normal respiratory effort Effort and Inspection: able to speak in complete sentences Cardio regular rate Peripheral Pulses: dorsalis pedis pulses present bilateral 1+ Extremity normal capillary refill Extremity Narrative: Bilateral lower extremity edema is improved with the unna boots. She has very long toe nails that are starting to curl and thicken. There are no ulcers as of yet from her long toe nails. They are painful to palpation. Skin Skin Narrative: Right lower leg is excoriated with thick, dry plaques from the drainage, the weeping has improved as her edema has decreased. Her skin looks like there could be a yeast component to it. Wound Narrative: She has areas of excoriation that are shiny pink. Neuro oriented x3 Sensorium / Orientation: awake Psych cooperative Debridement Note Debridement Note Wound debrided: leg excoriation Laterality: Right Type of Debridement: Selective debridement Anesthesia Used: 4% Lidocaine Solution Depth: Down to and including healthy tissue Percentage of wound debrided: 100 Tissue Removed: Moistened gauze to help remove the non viable dry plaques Severity: Limited To Skin Breakdown Amount of bleeding with debridement: None Patient tolerated procedure: Patient tolerated procedure well Post-Debridement Measurements and Additional Note: Post-Debridement Measurements/Treatment - Nurse 1 - General Ulcer Assessment Start: 12/31/21 13:48 Freq: Status: Active Protocol: MK Activity Type Activity Date Activity User E-sign Co-sign Detail Recorded Client Recorded Date Recorded By Document 12/31/21 13:48 KR [id number] 12/31/21 13:59 KR Document 01/05/22 14:25 KR [id number] 01/05/22 14:31 KR Document 01/07/22 13:49 RB [id number] 01/07/22 13:54 RB Document 01/19/22 14:04 [facility] [id number] 01/19/22 14:17 BM 12/31/21 01/05/22 01/07/22 13:48 14:25 13:49 - Today's Visit Information Type of service Nurse-only Follow-up Visit Follow-up Visit Visit (Physician/SURGICAL SERVICES MANAGER (Physician/SURGICAL SERVICES MANAGER ) ) Arrival Mode Ambulatory Ambulatory Ambulatory Transfer Assistance None Accompanied by Patient Identification Verified (Name & Yes Yes Yes ) Patient Requires Transmission-Based No Precautions Vital Signs Temperature (97.8 F-99.1 F) 97.0 F L 96.8 F L 97 F L Temperature Source Temporal Temporal Temporal Pulse Rate (60-100) 87 64 Pulse Location Monitor Monitor Monitor Respiratory Rate (12-18) 18 Respiratory rate source Observation Oxygen Delivery Method Blood Pressure (90/60-120/80) 132/74 H 145/74 H 135/70 H Blood Pressure Mean (mm Hg) 93 97 91 Source Monitor Monitor Monitor Position Semi-Fowlers Semi-Fowlers Semi-Fowlers Blood Pressure Location Left Arm Left Arm Left Arm History Since Last Visit- (Skip if this is Patient's initial visit) Have you changed medications since your No No No last visit? Any new allergies or adverse reactions No No No Had a fall/change in ADL's that may No No No increase risk of falls Signs or symptoms of abuse and/or No No No neglect since last visit Have you been in the hospital since your No No No last visit? Has dressing in place as prescribed Yes Yes Yes Has compression in place as prescribed Yes Yes Yes Has offloadiing in place as prescribed N/A N/A No Experienced any changes in pain level or No No No management Left Footwear Regular Shoe Regular Shoe Right Footwear Regular Shoe Regular Shoe Pain Scale: 0-10 Numeric Is Patient Pain Free? Yes Yes Yes 01/19/22 14:04 - Today's Visit Information Type of service Follow-up Visit (Physician/SURGICAL SERVICES MANAGER ) Arrival Mode Ambulatory Transfer Assistance None Accompanied by SON Patient Identification Verified (Name & Yes ) Patient Requires Transmission-Based No Precautions Vital Signs Temperature (97.8 F-99.1 F) 97.8 F Temperature Source Temporal Pulse Rate (60-100) 79 Pulse Location Monitor Respiratory Rate (12-18) 16 Respiratory rate source Observation Oxygen Delivery Method Room Air Blood Pressure (90/60-120/80) 180/77 H Blood Pressure Mean (mm Hg) 111 Source Monitor Position Sitting Blood Pressure Location Left Arm History Since Last Visit- (Skip if this is Patient's initial visit) Have you changed medications since your No last visit? Any new allergies or adverse reactions No Had a fall/change in ADL's that may No increase risk of falls Signs or symptoms of abuse and/or No neglect since last visit Have you been in the hospital since your No last visit? Has dressing in place as prescribed Yes Has compression in place as prescribed Yes Has offloadiing in place as prescribed N/A Experienced any changes in pain level or No management Left Footwear Regular Shoe Right Footwear Regular Shoe Pain Scale: 0-10 Numeric Is Patient Pain Free? Yes - Nurse 1 - General Ulcer Measurement Start: 12/31/21 13:48 Freq: Status: Active Protocol: Activity Type Activity Date Activity User E-sign Co-sign Detail Recorded Client Recorded Date Recorded By Document 01/05/22 14:25 KR [id number] 01/05/22 14:31 KR Document 01/07/22 13:49 RB [id number] 01/07/22 13:54 RB Document 01/19/22 14:04 [facility] [id number] 01/19/22 14:17 [facility] 01/05/22 01/07/22 01/19/22 14:25 13:49 14:04 Wound Center Nurse 1 #2 right medial LE -Combined with other wound No No -Current Size (cm) - Length 0 -Current Size (cm) - Width 0 -Current Size (cm) - Depth 0 -Total Square Cm 0 -Date of Last Picture (Recall this 01/19/22 field) -Photo Taken Yes -Epithelialization Large 67-100% -Texture (Tiny-wound Skin Appearance) Scarring Assessed, Scarring -Moisture (Tiny-wound Skin Appearance) Weeping Assessed,Dry/ Scaly -Color (Tiny-wound Skin Appearance) Assessed, Erythema -Temperature (Tiny-wound Skin No Abnormality Appearance) (Pt Warm) -Tenderness on Palpation (Tiny-wound No Skin Appearance) -Ulcer Cleansing Soap and Water -Foul Odor after Cleansing No Lower Limb Edema Present Yes Right Calf (cm) 35 36 34.1 Right Ankle (cm) 23 22 21.2 Left Calf (cm) 35 35 34.2 Left Ankle (cm) 21 22 20.9 WC - Nurse 2 - General Ulcer CM Notes Start: 12/31/21 13:48 Freq: Status: Active Protocol: Activity Type Activity Date Activity User E-sign Co-sign Detail Recorded Client Recorded Date Recorded By Document 01/05/22 14:45 [id number] 01/05/22 14:51 Document 01/19/22 14:42 [id number] 01/19/22 14:53 01/05/22 01/19/22 14:45 14:42 Wound Center Nurse 2 #2 right medial LE -Time 14:45 14:42 -Correct Patient Yes Yes -Correct Side, Site, Position Yes Yes -Correct Procedure Yes Yes -Procedure Performed Yes Yes -Type of Procedure Debridement Debridement -Clinical Debridement Subcutaneous Epidermis / Dermis -Tissue Removed Subcutaneous Epidermis, Dermis -Post Debridement (cm) - Length 1.5 21 -Post Debridement (cm) - Width 0.8 23 -Post Debridement (cm) - Depth 0.1 0.1 -Total Square (Post) (cm) 1.20 483 -Area of Debridement (cm) - Length 1.5 21 -Area of Debridement (cm) - Width 0.8 23 -Total Square (Area) (cm) 1.20 483 -Tunneling No No -Undermining/Tunneling No No -Circular Undermining No No -Wound/Ulcer Outcome Not Healed Not Healed -Ulcer Cleansing Rinsed/ Rinsed/ Irrigated with Irrigated with Saline Saline -Foul Odor after Cleansing No No -Bioengineered Tissue No No -Bleeding Controlled with Pressure Pressure -Treatment Response Procedure Procedure Tolerated Well Tolerated Well -Offloading No No -Debridement - Open, 1st 20sq cm Yes -Debridement, Open, ea addt'l 20sq cm 11 or part thereof -Debridement - Subq, 1st 20sq cm Yes Pain Scale: 0-10 Numeric Is Patient Pain Free? Yes Yes WC - Nurse 3 - General Ulcer D/C NN Start: 12/31/21 13:48 Freq: Status: Active Protocol: Activity Type Activity Date Activity User E-sign Co-sign Detail Recorded Client Recorded Date Recorded By Document 12/31/21 13:48 KR [id number] 12/31/21 13:59 KR Document 01/05/22 15:43 AK [id number] 01/05/22 15:44 AK Document 01/07/22 13:49 RB [id number] 01/07/22 13:54 RB 12/31/21 01/05/22 01/07/22 13:48 15:43 13:49 Vital Signs Temperature (97.8 F-99.1 F) 97.0 F L 97 F L Temperature Source Temporal Temporal Pulse Rate (60-100) 87 64 Pulse Location Monitor Monitor Respiratory Rate (12-18) 18 Respiratory rate source Observation Blood Pressure (90/60-120/80) 132/74 H 135/70 H Blood Pressure Mean (mm Hg) 93 91 Source Monitor Monitor Position Semi-Fowlers Semi-Fowlers Blood Pressure Location Left Arm Left Arm Pain Scale: 0-10 Numeric Is Patient Pain Free? Yes Yes Yes Wound Care Nurse 3 #2 right medial LE -Ulcer Cleansing Rinsed/ Irrigated with Saline -Foul Odor after Cleansing No -Negative Pressure Wound Therapy N/A -Primary Dressing Applied Optilok 6.5x10 -Other Dressing silvercelle -Optilok 6.5x10 1 bilateral -Multi-Layered Wrap Application Unna Boot - Bilateral ($) -Unna Boots (Bilat) ($) 2 Left -Multi-Layered Wrap Application Unna Boot - Unna Boot - Bilateral ($) Right ($) -Unna Boots (Bilat) ($) 2 Treatment Response Procedure Tolerated Well WC - Visit Discharge Discharge Condition Stable Stable Stable Ambulatory Status Ambulatory Ambulatory Ambulatory Transportation Private Auto Private Auto Private Auto Accompanied by son Medication Reconcilliation completed & Yes No provided to patient/care provider Clinical Summary of Care Provided Yes Yes Assessment/Plan Assessment/Plan (1) Excoriation of right lower leg: CODE(S): S80.811A - Abrasion, right lower leg, initial encounter (2) Lower extremity edema: CODE(S): R60.0 - Localized edema (3) Cellulitis of right lower leg: CODE(S): L03.115 - Cellulitis of right lower limb (4) Venous insufficiency: CODE(S): I87.2 - Venous insufficiency (chronic) (peripheral) PLAN: Plan Patient was evaluated at the wound center today. A selective debridement was performed today. Her edema has improved with the Unna boots for compression. Her right leg continues to be erythematous. Wound care - Apply triamcinolone/nystatin ointment daily, cover with gauze and top with double layer tubigrip to right leg. Left leg also should have double layer tubigrip. Instructed her to keep her legs elevated when sitting and lying flat. She should avoid standing for long periods of time. Wound culture obtained 12/29/21 which was positive for Streptococcus group A, Stenotrophomonas maltophilia, Acinetobacter haemolyticus and Corynebacterium striatum. Completed the Augmentin and Levaquin. She missed her podiatry appointment to get her toe nails trimmed because she was ill. She has rescheduled it. Follow up one week with me.
[2022-01-26 14:54] VITALS: BP 128/78; PULSE 59; TEMP 36.2
--- NOTE | 2022-01-26 16:25 | PCM.WC.PN ---
History of Present Illness Date of Service: 01/26/22 Chief Complaint: Right lower leg excoriation, drainage and edema. History of Wound: Patient is a 76-year-old female who presents with bilateral lower extremity edema and excoriation on her right leg. She has seen her PCP for this issue who started her on Bactrim which she finishes today. She states that this started a month or so ago. She has not been wearing any compression. She has had drainage from her right leg. She has a history of lower extremity wounds and had a venous doppler 11/16 which showed no valvular incompetence. She often sleeps in a chair. She has a history glaucoma, cellulitis, venous insufficiency, newly diagnosed DM and leg ulcers. She denies fever, chills, nausea or vomiting. She states her appetite is good. Progress of Wound: Right leg is very erythematous, warm and swollen. She has cellulitis. Instructed to stop the nystatin/triamcinolone ointment. Will start her on antibiotics. Objective Data Objective Data Vital Signs: Vital Signs Temp Pulse Resp BP O2 Del Method 97.1 F L 59 L 16 128/78 H Room Air 01/26/22 14:54 01/26/22 14:54 01/19/22 14:04 01/26/22 14:54 01/19/22 14:04 Oxygen Delivery Method Room Air Charges/Coding Visit Charges Office Visits / Consults: 97451 OV L3 Est Physical Exam Const alert, oriented x3 and no apparent distress General Appearance: cooperative HEENT normocephalic Neck full ROM Resp normal respiratory effort Effort and Inspection: able to speak in complete sentences Cardio regular rate Peripheral Pulses: dorsalis pedis pulses present bilateral 1+ Extremity normal capillary refill Extremity Narrative: She continues to have very long toe nails that are starting to curl and thicken. There are no ulcers as of yet from her long toe nails. Skin Skin Narrative: Right leg is very erythematous, hot to touch, and swollen. The plaques have resolved from the ointments she has been applying. Wound Narrative: She has areas of excoriation that are shiny pink. Neuro oriented x3 Sensorium / Orientation: awake Psych cooperative Debridement Note Debridement Note No debridement was completed: No debridement was completed today Post-Debridement Measurements and Additional Note: Post-Debridement Measurements/Treatment WC - Nurse 1 - General Ulcer Assessment Start: 12/31/21 13:48 Freq: Status: Active Protocol: WC.LOWEXT Activity Type Activity Date Activity User E-sign Co-sign Detail Recorded Client Recorded Date Recorded By Document 12/31/21 13:48 KR [id number] 12/31/21 13:59 KR Document 01/05/22 14:25 KR [id number] 01/05/22 14:31 KR Document 01/07/22 13:49 RB [id number] 01/07/22 13:54 RB Document 01/19/22 14:04 BMF [id number] 01/19/22 14:17 BM Document 01/26/22 14:54 KR [id number] 01/26/22 15:00 KR 12/31/21 01/05/22 01/07/22 13:48 14:25 13:49 - Today's Visit Information Type of service Nurse-only Follow-up Visit Follow-up Visit Visit (Physician/CLIENT SERVICE REPRESENTATIVE (Physician/CLIENT SERVICE REPRESENTATIVE ) ) Arrival Mode Ambulatory Ambulatory Ambulatory Transfer Assistance None Accompanied by Patient Identification Verified (Name & Yes Yes Yes ) Patient Requires Transmission-Based No Precautions Vital Signs Temperature (97.8 F-99.1 F) 97.0 F L 96.8 F L 97 F L Temperature Source Temporal Temporal Temporal Pulse Rate (60-100) 87 64 Pulse Location Monitor Monitor Monitor Respiratory Rate (12-18) 18 Respiratory rate source Observation Oxygen Delivery Method Blood Pressure (90/60-120/80) 132/74 H 145/74 H 135/70 H Blood Pressure Mean (mm Hg) 93 97 91 Source Monitor Monitor Monitor Position Semi-Fowlers Semi-Fowlers Semi-Fowlers Blood Pressure Location Left Arm Left Arm Left Arm History Since Last Visit- (Skip if this is Patient's initial visit) Have you changed medications since your No No No last visit? Any new allergies or adverse reactions No No No Had a fall/change in ADL's that may No No No increase risk of falls Signs or symptoms of abuse and/or No No No neglect since last visit Have you been in the hospital since your No No No last visit? Has dressing in place as prescribed Yes Yes Yes Has compression in place as prescribed Yes Yes Yes Has offloadiing in place as prescribed N/A N/A No Experienced any changes in pain level or No No No management Left Footwear Regular Shoe Regular Shoe Right Footwear Regular Shoe Regular Shoe Pain Scale: 0-10 Numeric Is Patient Pain Free? Yes Yes Yes 01/19/22 01/26/22 14:04 14:54 - Today's Visit Information Type of service Follow-up Visit Follow-up Visit (Physician/CLIENT SERVICE REPRESENTATIVE (Physician/CLIENT SERVICE REPRESENTATIVE ) ) Arrival Mode Ambulatory Ambulatory Transfer Assistance None Accompanied by SON Patient Identification Verified (Name & Yes Yes ) Patient Requires Transmission-Based No Precautions Vital Signs Temperature (97.8 F-99.1 F) 97.8 F 97.1 F L Temperature Source Temporal Temporal Pulse Rate (60-100) 79 59 L Pulse Location Monitor Monitor Respiratory Rate (12-18) 16 Respiratory rate source Observation Oxygen Delivery Method Room Air Blood Pressure (90/60-120/80) 180/77 H 128/78 H Blood Pressure Mean (mm Hg) 111 94 Source Monitor Monitor Position Sitting Sitting Blood Pressure Location Left Arm Right Arm History Since Last Visit- (Skip if this is Patient's initial visit) Have you changed medications since your No No last visit? Any new allergies or adverse reactions No No Had a fall/change in ADL's that may No No increase risk of falls Signs or symptoms of abuse and/or No No neglect since last visit Have you been in the hospital since your No No last visit? Has dressing in place as prescribed Yes Yes Has compression in place as prescribed Yes Yes Has offloadiing in place as prescribed N/A N/A Experienced any changes in pain level or No No management Left Footwear Regular Shoe Regular Shoe Right Footwear Regular Shoe Regular Shoe Pain Scale: 0-10 Numeric Is Patient Pain Free? Yes Yes - Nurse 1 - General Ulcer Measurement Start: 12/31/21 13:48 Freq: Status: Active Protocol: Activity Type Activity Date Activity User E-sign Co-sign Detail Recorded Client Recorded Date Recorded By Document 01/05/22 14:25 KR [id number] 01/05/22 14:31 KR Document 01/07/22 13:49 RB [id number] 01/07/22 13:54 RB Document 01/19/22 14:04 [facility] [id number] 01/19/22 14:17 BMF Document 01/26/22 14:54 KR [id number] 01/26/22 15:00 KR 01/05/22 01/07/22 01/19/22 14:25 13:49 14:04 Wound Center Nurse 1 #2 right medial LE -Combined with other wound No No -Current Size (cm) - Length 0 -Current Size (cm) - Width 0 -Current Size (cm) - Depth 0 -Total Square Cm 0 -Date of Last Picture (Recall this 01/19/22 field) -Photo Taken Yes -Epithelialization Large 67-100% -Texture (Tiny-wound Skin Appearance) Scarring Assessed, Scarring -Moisture (Tiny-wound Skin Appearance) Weeping Assessed,Dry/ Scaly -Color (Tiny-wound Skin Appearance) Assessed, Erythema -Temperature (Tiny-wound Skin No Abnormality Appearance) (Pt Warm) -Tenderness on Palpation (Tiny-wound No Skin Appearance) -Ulcer Cleansing Soap and Water -Foul Odor after Cleansing No Lower Limb Edema Present Yes Right Calf (cm) 35 36 34.1 Right Ankle (cm) 23 22 21.2 Left Calf (cm) 35 35 34.2 Left Ankle (cm) 21 22 20.9 01/26/22 14:54 Wound Center Nurse 1 #2 right medial LE -Combined with other wound -Current Size (cm) - Length -Current Size (cm) - Width -Current Size (cm) - Depth -Total Square Cm -Date of Last Picture (Recall this field) -Photo Taken -Epithelialization -Texture (Tiny-wound Skin Appearance) -Moisture (Tiny-wound Skin Appearance) -Color (Tiny-wound Skin Appearance) -Temperature (Tiny-wound Skin Appearance) -Tenderness on Palpation (Tiny-wound Skin Appearance) -Ulcer Cleansing -Foul Odor after Cleansing Lower Limb Edema Present Right Calf (cm) 39.5 Right Ankle (cm) 26 Left Calf (cm) Left Ankle (cm) WC - Nurse 2 - General Ulcer CM Notes Start: 12/31/21 13:48 Freq: Status: Active Protocol: Activity Type Activity Date Activity User E-sign Co-sign Detail Recorded Client Recorded Date Recorded By Document 01/05/22 14:45 MW [id number] 01/05/22 14:51 MW Document 01/19/22 14:42 [id number] 01/19/22 14:53 Document 01/26/22 15:43 [id number] 01/26/22 15:46 01/05/22 01/19/22 01/26/22 14:45 14:42 15:43 Wound Center Nurse 2 #2 right medial LE -Time 14:45 14:42 -Correct Patient Yes Yes -Correct Side, Site, Position Yes Yes -Correct Procedure Yes Yes -Procedure Performed Yes Yes -Type of Procedure Debridement Debridement -Clinical Debridement Subcutaneous Epidermis / Dermis -Tissue Removed Subcutaneous Epidermis, Dermis -Post Debridement (cm) - Length 1.5 21 -Post Debridement (cm) - Width 0.8 23 -Post Debridement (cm) - Depth 0.1 0.1 -Total Square (Post) (cm) 1.20 483 -Area of Debridement (cm) - Length 1.5 21 -Area of Debridement (cm) - Width 0.8 23 -Total Square (Area) (cm) 1.20 483 -Tunneling No No -Undermining/Tunneling No No -Circular Undermining No No -Wound/Ulcer Outcome Not Healed Not Healed -Ulcer Cleansing Rinsed/ Rinsed/ Irrigated with Irrigated with Saline Saline -Foul Odor after Cleansing No No -Bioengineered Tissue No No -Bleeding Controlled with Pressure Pressure -Treatment Response Procedure Procedure Tolerated Well Tolerated Well -Offloading No No -Debridement - Open, 1st 20sq cm Yes -Debridement, Open, ea addt'l 20sq cm 11 or part thereof -Debridement - Subq, 1st 20sq cm Yes Pain Scale: 0-10 Numeric Is Patient Pain Free? Yes Yes Yes WC - Nurse 3 - General Ulcer D/C NN Start: 12/31/21 13:48 Freq: Status: Active Protocol: Activity Type Activity Date Activity User E-sign Co-sign Detail Recorded Client Recorded Date Recorded By Document 12/31/21 13:48 KR [id number] 12/31/21 13:59 KR Document 01/05/22 15:43 AK [id number] 01/05/22 15:44 AK Document 01/07/22 13:49 RB [id number] 01/07/22 13:54 RB Document 01/19/22 15:04 BMF [id number] 01/19/22 15:05 [facility] Document 01/26/22 16:01 [facility] [id number] 01/26/22 16:01 [facility] 12/31/21 01/05/22 01/07/22 13:48 15:43 13:49 Vital Signs Temperature (97.8 F-99.1 F) 97.0 F L 97 F L Temperature Source Temporal Temporal Pulse Rate (60-100) 87 64 Pulse Location Monitor Monitor Respiratory Rate (12-18) 18 Respiratory rate source Observation Blood Pressure (90/60-120/80) 132/74 H 135/70 H Blood Pressure Mean (mm Hg) 93 91 Source Monitor Monitor Position Semi-Fowlers Semi-Fowlers Blood Pressure Location Left Arm Left Arm Pain Scale: 0-10 Numeric Is Patient Pain Free? Yes Yes Yes Wound Care Nurse 3 #2 right medial LE -Ulcer Cleansing Rinsed/ Irrigated with Saline -Foul Odor after Cleansing No -Negative Pressure Wound Therapy N/A -Primary Dressing Applied Optilok 6.5x10 -Other Dressing silvercelle -Optilok 6.5x10 1 bilateral -Multi-Layered Wrap Application Unna Boot - Bilateral ($) -Unna Boots (Bilat) ($) 2 -Tubular Bandage -Size of Tubigrip Used -Size E ($) -Other Left -Multi-Layered Wrap Application Unna Boot - Unna Boot - Bilateral ($) Right ($) -Unna Boots (Bilat) ($) 2 Treatment Response Procedure Tolerated Well WC - Visit Discharge Discharge Condition Stable Stable Stable Ambulatory Status Ambulatory Ambulatory Ambulatory Transportation Private Auto Private Auto Private Auto Accompanied by son Medication Reconcilliation completed & Yes No provided to patient/care provider Clinical Summary of Care Provided Yes Yes Notes: 01/19/22 01/26/22 15:04 16:01 Vital Signs Temperature (97.8 F-99.1 F) Temperature Source Pulse Rate (60-100) Pulse Location Respiratory Rate (12-18) Respiratory rate source Blood Pressure (90/60-120/80) Blood Pressure Mean (mm Hg) Source Position Blood Pressure Location Pain Scale: 0-10 Numeric Is Patient Pain Free? Yes Yes Wound Care Nurse 3 #2 right medial LE -Ulcer Cleansing -Foul Odor after Cleansing -Negative Pressure Wound Therapy -Primary Dressing Applied -Other Dressing -Optilok 6.5x10 bilateral -Multi-Layered Wrap Application -Unna Boots (Bilat) ($) -Tubular Bandage Double Layer Double Layer -Size of Tubigrip Used Size E Size E -Size E ($) 2 2 -Other APPLIED PER DL [employer]URAL CAR[employer]ER Left -Multi-Layered Wrap Application -Unna Boots (Bilat) ($) Treatment Response Procedure Procedure Tolerated Well Tolerated Well WC - Visit Discharge Discharge Condition Stable Stable Ambulatory Status Ambulatory Ambulatory Transportation Private Auto Private Auto Accompanied by SON Medication Reconcilliation completed & provided to patient/care provider Clinical Summary of Care Provided Notes: DRY GAUZE APPLIED TO HEALED AREA RLE PER DL [employer] CARRIER Assessment/Plan Assessment/Plan (1) Excoriation of right lower leg: CODE(S): S80.811A - Abrasion, right lower leg, initial encounter (2) Lower extremity edema: CODE(S): R60.0 - Localized edema (3) Cellulitis of right lower leg: CODE(S): L03.115 - Cellulitis of right lower limb (4) Venous insufficiency: CODE(S): I87.2 - Venous insufficiency (chronic) (peripheral) PLAN: Plan Patient was evaluated at the wound center today. No debridement was performed today, no actual wound. Her right leg is very erythematous, hot to touch with edema. The area of redness was marked with with a marker. She has cellulitis which we will start her on Keflex and Bactrim. She was instructed that if the redness spreads beyond the marked area, she needs to go to the ED for further evaluation. She verbalized understanding. Wound care -Stop triamcinolone/nystatin ointment. Moisturize leg daily with thick emollient cream and place double layer tubigrip to right leg for compression. Left leg also should have double layer tubigrip. Instructed her to keep her legs elevated when sitting and lying flat. She should avoid standing for long periods of time. Wound culture obtained 12/29/21 which was positive for Streptococcus group A, Stenotrophomonas maltophilia, Acinetobacter haemolyticus and Corynebacterium striatum. Completed the Augmentin and Levaquin. She missed her podiatry appointment to get her toe nails trimmed because she was ill. She has rescheduled it. Follow up one week with me.
== END 2022-01-28 23:59 | disposition home or self-care (01) ==
LOC: WC 14:15
PROVIDERS: PCP Student in an Organized Health Care Education/Training Program; Visit Provider Nurse Practitioner Family
DX: E11.621 Type 2 diabetes mellitus with foot ulcer (principal); L97.812 Non-pressure chronic ulcer of other part of right lower leg with fat layer exposed; L97.811 Non-pressure chronic ulcer of other part of right lower leg limited to breakdown of skin; E11.59 Type 2 diabetes mellitus with other circulatory complications; L03.115 Cellulitis of right lower limb; R60.0 Localized edema; S80.811A Abrasion, right lower leg, initial encounter; I87.2 Venous insufficiency (chronic) (peripheral); X58.XXXA Exposure to other specified factors, initial encounter
CPT/HCPCS: 11042; 29580; 97597; 97598; 99213; G0463

== ENCOUNTER 2022-02-16 10:15 | Outpatient (RCR) | payer MEDICARE, MEDICAID, SELFPAY ==
[2022-01-29 01:40] VITALS: BP 128/78; PULSE 59; RESP 16; TEMP 36.2
[2022-02-02 10:50] VITALS: BP 146/77; PULSE 91; RESP 16; TEMP 36.2
--- NOTE | 2022-02-02 12:27 | PCM.WC.PN ---
History of Present Illness Date of Service: 02/02/22 Chief Complaint: Right lower leg excoriation, drainage and edema. History of Wound: Patient is a 76-year-old female who presents with bilateral lower extremity edema and excoriation on her right leg. She has seen her PCP for this issue who started her on Bactrim which she finishes today. She states that this started a month or so ago. She has not been wearing any compression. She has had drainage from her right leg. She has a history of lower extremity wounds and had a venous doppler 11/16 which showed no valvular incompetence. She often sleeps in a chair. She has a history glaucoma, cellulitis, venous insufficiency, newly diagnosed DM and leg ulcers. She denies fever, chills, nausea or vomiting. She states her appetite is good. Progress of Wound: No open wounds or ulcers today. Bilateral legs are both very erythematous. Not hot to touch. They are both more edematous this week. She is complaining of her hands being very red and itchy, the dorsal aspect of hands, not the palmar aspect. She denies any sores in her mouth, lips or any mucous membrane. Will have her stop the Bactrim. Objective Data Objective Data Vital Signs: Vital Signs Temp Pulse Resp BP O2 Del Method 97.1 F L 91 16 146/77 H Room Air 02/02/22 10:50 02/02/22 10:50 02/02/22 10:50 02/02/22 10:50 02/02/22 10:50 Oxygen Delivery Method Room Air Charges/Coding Visit Charges Office Visits / Consults: 07821 OV L3 Est Physical Exam Const alert, oriented x3 and no apparent distress HEENT normocephalic Neck full ROM Resp normal respiratory effort Effort and Inspection: able to speak in complete sentences Cardio regular rate Peripheral Pulses: dorsalis pedis pulses present bilateral 1+ Extremity normal capillary refill Extremity Narrative: She continues to have very long toe nails that are starting to curl and thicken. There are no ulcers as of yet from her long toe nails. Skin Skin Narrative: Bilateral legs are +3 edema and erythematous. They are not warm to touch. Wound Narrative: She has no ulcers present. Neuro oriented x3 Sensorium / Orientation: awake Psych cooperative Debridement Note Debridement Note No debridement was completed: No debridement was completed today Post-Debridement Measurements and Additional Note: Post-Debridement Measurements/Treatment MARY - Nurse 1 - General Ulcer Assessment Start: 02/02/22 10:50 Freq: Status: Active Protocol: MK Activity Type Activity Date Activity User E-sign Co-sign Detail Recorded Client Recorded Date Recorded By Document 02/02/22 10:50 [facility] [id number] 02/02/22 10:59 [facility] 02/02/22 10:50 WC - Today's Visit Information Type of service Follow-up Visit (Physician/AUTOMOTIVE POWER ELECTRONICS ENGINEER ) Arrival Mode Ambulatory Transfer Assistance None Accompanied by SON Patient Identification Verified (Name & Yes ) Patient Requires Transmission-Based No Precautions Vital Signs Temperature (97.8 F-99.1 F) 97.1 F L Temperature Source Temporal Pulse Rate (60-100) 91 Pulse Location Monitor Respiratory Rate (12-18) 16 Respiratory rate source Observation Oxygen Delivery Method Room Air Blood Pressure (90/60-120/80) 146/77 H Blood Pressure Mean (mm Hg) 100 Source Monitor Position Sitting Blood Pressure Location Left Forearm History Since Last Visit- (Skip if this is Patient's initial visit) Have you changed medications since your No last visit? Any new allergies or adverse reactions No Had a fall/change in ADL's that may No increase risk of falls Signs or symptoms of abuse and/or No neglect since last visit Have you been in the hospital since your No last visit? Has compression in place as prescribed Yes Has offloadiing in place as prescribed N/A Experienced any changes in pain level or No management Left Footwear Regular Shoe Right Footwear Regular Shoe Pain Scale: 0-10 Numeric Is Patient Pain Free? Yes MARY - Nurse 1 - General Ulcer Measurement Start: 02/02/22 10:50 Freq: Status: Active Protocol: Activity Type Activity Date Activity User E-sign Co-sign Detail Recorded Client Recorded Date Recorded By Document 02/02/22 10:50 [facility] [id number] 02/02/22 10:59 [facility] 02/02/22 10:50 Wound Center Nurse 1 Lower Limb Edema Present Yes Right Calf (cm) 39.3 Right Ankle (cm) 21.6 Left Calf (cm) 36.6 Left Ankle (cm) 23.2 MARY - Nurse 2 - General Ulcer CM Notes Start: 02/02/22 10:50 Freq: Status: Active Protocol: Activity Type Activity Date Activity User E-sign Co-sign Detail Recorded Client Recorded Date Recorded By Document 02/02/22 11:15 [id number] 02/02/22 11:15 02/02/22 11:15 Pain Scale: 0-10 Numeric Is Patient Pain Free? Yes WC - Nurse 3 - General Ulcer D/C NN Start: 02/02/22 10:50 Freq: Status: Active Protocol: Activity Type Activity Date Activity User E-sign Co-sign Detail Recorded Client Recorded Date Recorded By Document 02/02/22 11:31 [facility] [id number] 02/02/22 11:31 [facility] 02/02/22 11:31 Wound Care Nurse 3 BLE -Multi-Layered Wrap Application Multi-Layer Comp - Bilat ($ ) Treatment Response Procedure Tolerated Well Pain Scale: 0-10 Numeric Is Patient Pain Free? Yes WC - Visit Discharge Discharge Condition Stable Ambulatory Status Ambulatory Transportation Private Auto Accompanied by SON Assessment/Plan Assessment/Plan (1) Excoriation of right lower leg: CODE(S): S80.811A - Abrasion, right lower leg, initial encounter (2) Lower extremity edema: CODE(S): R60.0 - Localized edema (3) Cellulitis of right lower leg: CODE(S): L03.115 - Cellulitis of right lower limb (4) Venous insufficiency: CODE(S): I87.2 - Venous insufficiency (chronic) (peripheral) (5) Acquired lymphedema: CODE(S): I89.0 - Lymphedema, not elsewhere classified PLAN: Plan Patient was evaluated at the wound center today. No debridement was performed today, no actual wound. Wound care - Cover legs with gauze and place 3M 2 layer wraps on bilateral lower legs to help with edema/lymphedema. Instructed her to keep her legs elevated when sitting and lying flat. She should avoid standing for long periods of time. Instructed her to stop taking the Bactrim due to her bilateral red, itching dorsal hands. Instructed her that if she develops worsening of symptoms, sores in mouth or any mucous membrane area to go the ED. Wound culture obtained 12/29/21 which was positive for Streptococcus group A, Stenotrophomonas maltophilia, Acinetobacter haemolyticus and Corynebacterium striatum. Completed the Augmentin and Levaquin. She missed her podiatry appointment to get her toe nails trimmed because she was ill. She has rescheduled it for next week. Follow up one week with me.
[2022-02-09 10:34] VITALS: BP 144/81; PULSE 75; RESP 20; TEMP 36.4
--- NOTE | 2022-02-09 12:33 | PN.PCM_ITS ---
History of Present Illness Date of Service: 02/09/22 Chief Complaint: Right lower leg excoriation, drainage and edema. History of Wound: Patient is a 76-year-old female who presents with bilateral lower extremity edema and excoriation on her right leg. She has seen her PCP for this issue who started her on Bactrim which she finishes today. She states that this started a month or so ago. She has not been wearing any compression. She has had drainage from her right leg. She has a history of lower extremity wounds and had a venous doppler 11/16 which showed no valvular incompetence. She often sleeps in a chair. She has a history glaucoma, cellulitis, venous insufficiency, newly diagnosed DM and leg ulcers. She denies fever, chills, nausea or vomiting. She states her appetite is good. Progress of Wound: No open wounds or ulcers today. Left leg is no longer erythematous. Right leg is erythematous than last week. Not hot to touch. The edema has improved, +1-+2 edema, with the 3M 2 layer wraps and she has no weeping present. She is complaining of her hands being very red and itchy, the dorsal aspect of hands, not the palmar aspect. She stopped her bactrim last week and her dorsal portion of hands continue to have red, dried, itchy skin. Instructed to start placing thick lotion multiple times per day. Place cotton gloves or white socks on hands at bedtime to help keep moisture in. Instructed to start to wear dish gloves while washing dishes to prevent her skin/hands from being in hot water for too long of a period of time. Objective Data Objective Data Vital Signs: Vital Signs Temp Pulse Resp BP O2 Del Method 97.6 F L 75 20 H 144/81 H Room Air 02/09/22 10:34 02/09/22 10:34 02/09/22 10:34 02/09/22 10:34 02/02/22 10:50 Oxygen Delivery Method Room Air Charges/Coding Visit Charges Office Visits / Consults: 58119 OV L3 Est Physical Exam Const alert, oriented x3 and no apparent distress HEENT normocephalic Neck full ROM Resp normal respiratory effort Effort and Inspection: able to speak in complete sentences Cardio regular rate Peripheral Pulses: dorsalis pedis pulses present bilateral 1+ Extremity normal capillary refill Extremity Narrative: She continues to have very long toe nails that are starting to curl and thicken. There are no ulcers as of yet from her long toe nails. Skin Skin Narrative: Bilateral legs are +1-+2 edema and the right leg erythema is starting to improve with the compress. The left leg erythema has resolved. Wound Narrative: She has no ulcers present. Neuro oriented x3 Sensorium / Orientation: awake Psych cooperative Debridement Note Debridement Note No debridement was completed: No debridement was completed today Post-Debridement Measurements and Additional Note: Post-Debridement Measurements/Treatment - Nurse 1 - General Ulcer Assessment Start: 02/02/22 10:50 Freq: Status: Active Protocol: MARY.LOWEXT Activity Type Activity Date Activity User E-sign Co-sign Detail Recorded Client Recorded Date Recorded By Document 02/02/22 10:50 [facility] [id number] 02/02/22 10:59 [facility] Document 02/09/22 10:34 DL [id number] 02/09/22 10:42 DL 02/02/22 02/09/22 10:50 10:34 - Today's Visit Information Type of service Follow-up Visit Follow-up Visit (Physician/BONUS CLERK (Physician/BONUS CLERK ) ) Arrival Mode Ambulatory Ambulatory Transfer Assistance None None Accompanied by SON Patient Identification Verified (Name & Yes Yes ) Patient Requires Transmission-Based No No Precautions Finger Stick Blood Sugar(mg/dl) (if didnt check indicated): Blood Sugar Stated by Patient Vital Signs Temperature (97.8 F-99.1 F) 97.1 F L 97.6 F L Temperature Source Temporal Temporal Pulse Rate (60-100) 91 75 Pulse Location Monitor Monitor Respiratory Rate (12-18) 16 20 H Respiratory rate source Observation Observation Oxygen Delivery Method Room Air Blood Pressure (90/60-120/80) 146/77 H 144/81 H Blood Pressure Mean (mm Hg) 100 102 Source Monitor Monitor Position Sitting Blood Pressure Location Left Forearm History Since Last Visit- (Skip if this is Patient's initial visit) Have you changed medications since your No No last visit? Any new allergies or adverse reactions No No Had a fall/change in ADL's that may No No increase risk of falls Signs or symptoms of abuse and/or No No neglect since last visit Have you been in the hospital since your No No last visit? Has dressing in place as prescribed Yes Has compression in place as prescribed Yes Yes Has offloadiing in place as prescribed N/A N/A Experienced any changes in pain level or No No management Left Footwear Regular Shoe Right Footwear Regular Shoe Pain Scale: 0-10 Numeric Is Patient Pain Free? Yes Yes - Nurse 1 - General Ulcer Measurement Start: 02/02/22 10:50 Freq: Status: Active Protocol: Activity Type Activity Date Activity User E-sign Co-sign Detail Recorded Client Recorded Date Recorded By Document 02/02/22 10:50 [facility] [id number] 02/02/22 10:59 [facility] Document 02/09/22 10:34 DL [id number] 02/09/22 10:42 DL 02/02/22 02/09/22 10:50 10:34 Wound Center Nurse 1 Lower Limb Edema Present Yes Right Calf (cm) 39.3 34.2 Right Ankle (cm) 21.6 20 Left Calf (cm) 36.6 32.7 Left Ankle (cm) 23.2 21.4 - Nurse 2 - General Ulcer CM Notes Start: 02/02/22 10:50 Freq: Status: Active Protocol: Activity Type Activity Date Activity User E-sign Co-sign Detail Recorded Client Recorded Date Recorded By Document 02/02/22 11:15 [id number] 02/02/22 11:15 Document 02/09/22 10:59 [id number] 02/09/22 11:00 02/02/22 02/09/22 11:15 10:59 Pain Scale: 0-10 Numeric Is Patient Pain Free? Yes Yes - Nurse 3 - General Ulcer D/C NN Start: 02/02/22 10:50 Freq: Status: Active Protocol: Activity Type Activity Date Activity User E-sign Co-sign Detail Recorded Client Recorded Date Recorded By Document 02/02/22 11:31 [facility] [id number] 02/02/22 11:31 [facility] Document 02/09/22 11:29 DL [id number] 02/09/22 11:29 DL 02/02/22 02/09/22 11:31 11:29 Wound Care Nurse 3 BLE -Lotion applied to leg before Yes compression wrap -Multi-Layered Wrap Application Multi-Layer Multi-Layer Comp - Bilat ($ Comp - Bilat ($ ) ) Treatment Response Procedure Tolerated Well Pain Scale: 0-10 Numeric Is Patient Pain Free? Yes Yes WC - Visit Discharge Discharge Condition Stable Stable Ambulatory Status Ambulatory Ambulatory Transportation Private Auto Private Auto Accompanied by SON son Assessment/Plan Assessment/Plan (1) Excoriation of right lower leg: CODE(S): S80.811A - Abrasion, right lower leg, initial encounter (2) Lower extremity edema: CODE(S): R60.0 - Localized edema (3) Cellulitis of right lower leg: CODE(S): L03.115 - Cellulitis of right lower limb (4) Venous insufficiency: CODE(S): I87.2 - Venous insufficiency (chronic) (peripheral) (5) Acquired lymphedema: CODE(S): I89.0 - Lymphedema, not elsewhere classified PLAN: Plan Patient was evaluated at the wound center today. No debridement was performed today, no actual wound. Wound care - Cover legs with gauze and place 3M 2 layer wraps on bilateral lower legs to help with edema/lymphedema. Instructed her to keep her legs elevated when sitting and lying flat. She should avoid standing for long periods of time. For her bilateral hands - Instructed to start placing thick lotion multiple times per day. Place cotton gloves or white socks on hands at bedtime to help keep moisture in. Instructed to start to wear dish gloves while washing dishes to prevent her skin/hands from being in hot water for too long of a period of time. Wound culture obtained 12/29/21 which was positive for Streptococcus group A, Stenotrophomonas maltophilia, Acinetobacter haemolyticus and Corynebacterium striatum. Completed the Augmentin and Levaquin. She missed her podiatry appointment to get her toe nails trimmed because the physician had a family emergency. Her son did call and reschedule her appointment while we were in the room. She is now scheduled for 02/24/22. Follow up one week with me.
[2022-02-16 10:15] VITALS: BP 144/74; PULSE 73; RESP 18; TEMP 36.3
--- NOTE | 2022-02-16 12:19 | PCM.WC.PN ---
History of Present Illness Date of Service: 02/16/22 Chief Complaint: Right lower leg excoriation, drainage and edema. History of Wound: Patient is a 76-year-old female who presents with bilateral lower extremity edema and excoriation on her right leg. She has seen her PCP for this issue who started her on Bactrim which she finishes today. She states that this started a month or so ago. She has not been wearing any compression. She has had drainage from her right leg. She has a history of lower extremity wounds and had a venous doppler 11/16 which showed no valvular incompetence. She often sleeps in a chair. She has a history glaucoma, cellulitis, venous insufficiency, newly diagnosed DM and leg ulcers. She denies fever, chills, nausea or vomiting. She states her appetite is good. Progress of Wound: No open wounds or ulcers today. Left leg is looking good with no edema or erythema, no dry, flakey dry skin. Right leg has+2 edema/lymphedema, less erythema, no drainage present. She has large, dry plaques covering her right leg and foot. The dry, flakey skin is most likely caused by the 3M [address]. She is complaining of her hands being very red and itchy, the dorsal aspect of hands, not the palmar aspect, she has very chapped hands. She has not been using dish gloves while doing dishes or wearing cotton gloves/white socks at bedtime after placing Aquaphor or Vaseline on her hands as recommended. Objective Data Objective Data Vital Signs: Vital Signs Temp Pulse Resp BP O2 Del Method 97.4 F L 73 18 144/74 H Room Air 02/16/22 10:15 02/16/22 10:15 02/16/22 10:15 02/16/22 10:15 02/02/22 10:50 Oxygen Delivery Method Room Air Charges/Coding Visit Charges Office Visits / Consults: 56852 OV L3 Est Physical Exam Const alert, oriented x3 and no apparent distress HEENT normocephalic Neck full ROM Resp normal respiratory effort Effort and Inspection: able to speak in complete sentences Cardio regular rate Peripheral Pulses: dorsalis pedis pulses present bilateral 1+ Extremity normal capillary refill Extremity Narrative: She continues to have very long toe nails that are starting to curl and thicken. There are no ulcers as of yet from her long toe nails. Skin Skin Narrative: Bilateral legs are +1-+2 edema and the right leg erythema is starting to improve with the compression, no weeping present. The left leg erythema has resolved. Right leg is extremely dry with large, plaques of skin present. Wound Narrative: She has no ulcers present. Neuro oriented x3 Sensorium / Orientation: awake Psych cooperative Debridement Note Debridement Note No debridement was completed: No debridement was completed today Post-Debridement Measurements and Additional Note: Post-Debridement Measurements/Treatment - Nurse 1 - General Ulcer Assessment Start: 02/02/22 10:50 Freq: Status: Active Protocol: MARY.Spark[employer]CO Activity Type Activity Date Activity User E-sign Co-sign Detail Recorded Client Recorded Date Recorded By Document 02/02/22 10:50 BM [id number] 02/02/22 10:59 BMF Document 02/09/22 10:34 DL [id number] 02/09/22 10:42 DL Document 02/16/22 10:15 DL [id number] 02/16/22 10:20 DL 02/02/22 02/09/22 02/16/22 10:50 10:34 10:15 - Today's Visit Information Type of service Follow-up Visit Follow-up Visit Follow-up Visit (Physician/SUPERVISOR ACCOUNTS RECEIVABLE (Physician/SUPERVISOR ACCOUNTS RECEIVABLE (Physician/SUPERVISOR ACCOUNTS RECEIVABLE ) ) ) Arrival Mode Ambulatory Ambulatory Ambulatory Transfer Assistance None None None Accompanied by SON Patient Identification Verified (Name & Yes Yes Yes ) Patient Requires Transmission-Based No No No Precautions Finger Stick Blood Sugar(mg/dl) (if didnt check indicated): Blood Sugar Stated by Patient Vital Signs Temperature (97.8 F-99.1 F) 97.1 F L 97.6 F L 97.4 F L Temperature Source Temporal Temporal Temporal Pulse Rate (60-100) 91 75 73 Pulse Location Monitor Monitor Monitor Respiratory Rate (12-18) 16 20 H 18 Respiratory rate source Observation Observation Observation Oxygen Delivery Method Room Air Blood Pressure (90/60-120/80) 146/77 H 144/81 H 144/74 H Blood Pressure Mean (mm Hg) 100 102 97 Source Monitor Monitor Monitor Position Sitting Blood Pressure Location Left Forearm History Since Last Visit- (Skip if this is Patient's initial visit) Have you changed medications since your No No No last visit? Any new allergies or adverse reactions No No No Had a fall/change in ADL's that may No No No increase risk of falls Signs or symptoms of abuse and/or No No No neglect since last visit Have you been in the hospital since your No No No last visit? Has dressing in place as prescribed Yes Yes Has compression in place as prescribed Yes Yes Yes Has offloadiing in place as prescribed N/A N/A N/A Experienced any changes in pain level or No No No management Left Footwear Regular Shoe Right Footwear Regular Shoe Pain Scale: 0-10 Numeric Is Patient Pain Free? Yes Yes Yes - Nurse 1 - General Ulcer Measurement Start: 02/02/22 10:50 Freq: Status: Active Protocol: Activity Type Activity Date Activity User E-sign Co-sign Detail Recorded Client Recorded Date Recorded By Document 02/02/22 10:50 [facility] [id number] 02/02/22 10:59 BMF Document 02/09/22 10:34 DL [id number] 02/09/22 10:42 DL Document 02/16/22 10:15 DL [id number] 02/16/22 10:20 DL 02/02/22 02/09/22 02/16/22 10:50 10:34 10:15 Wound Center Nurse 1 Lower Limb Edema Present Yes Right Calf (cm) 39.3 34.2 33 Right Ankle (cm) 21.6 20 20.2 Left Calf (cm) 36.6 32.7 32.2 Left Ankle (cm) 23.2 21.4 20.8 - Nurse 2 - General Ulcer CM Notes Start: 02/02/22 10:50 Freq: Status: Active Protocol: Activity Type Activity Date Activity User E-sign Co-sign Detail Recorded Client Recorded Date Recorded By Document 02/02/22 11:15 [id number] 02/02/22 11:15 Document 02/09/22 10:59 [id number] 02/09/22 11:00 JF Document 02/16/22 10:32 [id number] 02/16/22 10:32 JF 02/02/22 02/09/22 02/16/22 11:15 10:59 10:32 Pain Scale: 0-10 Numeric Is Patient Pain Free? Yes Yes Yes WC - Nurse 3 - General Ulcer D/C NN Start: 02/02/22 10:50 Freq: Status: Active Protocol: Activity Type Activity Date Activity User E-sign Co-sign Detail Recorded Client Recorded Date Recorded By Document 02/02/22 11:31 BMF [id number] 02/02/22 11:31 BMF Document 02/09/22 11:29 DL [id number] 02/09/22 11:29 DL Document 02/16/22 10:56 RB [id number] 02/16/22 10:57 RB 02/02/22 02/09/22 02/16/22 11:31 11:29 10:56 Wound Care Nurse 3 BLE -Lotion applied to leg before Yes Yes compression wrap -Multi-Layered Wrap Application Multi-Layer Multi-Layer Comp - Bilat ($ Comp - Bilat ($ ) ) -Tubular Bandage Double Layer -Size of Tubigrip Used Size C -Size C ($) 2 Treatment Response Procedure Procedure Tolerated Well Tolerated Well Pain Scale: 0-10 Numeric Is Patient Pain Free? Yes Yes Yes Teaching: Wound Center Compression Wraps & Stockings -Person Taught Patient,Family -Teaching Method Discussion, Demonstration -Response to teaching Verbalize understanding WC - Visit Discharge Discharge Condition Stable Stable Stable Ambulatory Status Ambulatory Ambulatory Ambulatory Transportation Private Auto Private Auto Private Auto Accompanied by SON son Medication Reconcilliation completed & No provided to patient/care provider Clinical Summary of Care Provided Yes Assessment/Plan Assessment/Plan (1) Excoriation of right lower leg: CODE(S): S80.811A - Abrasion, right lower leg, initial encounter (2) Lower extremity edema: CODE(S): R60.0 - Localized edema (3) Cellulitis of right lower leg: CODE(S): L03.115 - Cellulitis of right lower limb (4) Venous insufficiency: CODE(S): I87.2 - Venous insufficiency (chronic) (peripheral) (5) Acquired lymphedema: CODE(S): I89.0 - Lymphedema, not elsewhere classified PLAN: Plan Patient was evaluated at the wound center today. Now that the 3M 2 layer wraps have decreased her edema, encouraged patient to shower and gently exfoliate her legs with a wash cloth and soap, pat skin dry and apply an emollient lotion such as Eucerin cream, CeraVe or Aveeno daily. Compression - Double tubigrip until she picks up her compression stockings from, [employer]. Instructed her to keep her legs elevated when sitting and lying flat. She should avoid standing for long periods of time. For her bilateral hands - Instructed to start placing thick lotion multiple times per day. Place cotton gloves or white socks on hands at bedtime to help keep moisture in. Instructed to start to wear dish gloves while washing dishes to prevent her skin/hands from being in hot water for too long of a period of time. Wound culture obtained 12/29/21 which was positive for Streptococcus group A, Stenotrophomonas maltophilia, Acinetobacter haemolyticus and Corynebacterium striatum. Completed the Augmentin and Levaquin. She missed her podiatry appointment to get her toe nails trimmed because the physician had a family emergency. Her son did call and reschedule her appointment while we were in the room. She is now scheduled for 02/24/22. Follow up two weeks.
== END 2022-02-28 23:59 | disposition home or self-care (01) ==
LOC: WC 10:15
PROVIDERS: PCP Student in an Organized Health Care Education/Training Program; Visit Provider Nurse Practitioner Family
DX: L03.115 Cellulitis of right lower limb (principal); E11.9 Type 2 diabetes mellitus without complications; R60.0 Localized edema; H40.9 Unspecified glaucoma; I87.2 Venous insufficiency (chronic) (peripheral); I89.0 Lymphedema, not elsewhere classified; Z79.899 Other long term (current) drug therapy; S80.811A Abrasion, right lower leg, initial encounter
CPT/HCPCS: 29581; 99213; G0463

== ENCOUNTER 2022-03-16 09:00 | Outpatient (RCR) | payer MEDICARE, SELFPAY ==
[2022-03-01 00:34] VITALS: BP 144/74; PULSE 73; RESP 18; TEMP 36.3
[2022-03-02 10:11] VITALS: BP 152/76; PULSE 73; RESP 18; TEMP 36
--- NOTE | 2022-03-02 13:48 | PN.PCM_ITS ---
History of Present Illness Date of Service: 03/02/22 Chief Complaint: Right lower leg excoriation, drainage and edema. History of Wound: Patient is a 76-year-old female who presents with bilateral lower extremity edema and excoriation on her right leg. She has seen her PCP for this issue who started her on Bactrim which she finishes today. She states that this started a month or so ago. She has not been wearing any compression. She has had drainage from her right leg. She has a history of lower extremity wounds and had a venous doppler 11/16 which showed no valvular incompetence. She often sleeps in a chair. She has a history glaucoma, cellulitis, venous insufficiency, newly diagnosed DM and leg ulcers. She denies fever, chills, nausea or vomiting. She states her appetite is good. Progress of Wound: Patient has not been wearing her compression as instructed. She has been wearing a single layer tubigrip, when she wears compression.Bilateral legs have +3 edema. Right leg is pink and warm. The amount of sloughing on her legs bilaterally have improved with more frequent washing. She has been to podiatry to have her toe nails trimmed and they look much better. Objective Data Objective Data Vital Signs: Vital Signs Temp Pulse Resp BP 96.8 F L 73 18 152/76 H 03/02/22 10:11 03/02/22 10:11 03/02/22 10:11 03/02/22 10:11 Charges/Coding Visit Charges Office Visits / Consults: [id number] OV L3 Est Physical Exam Const alert, oriented x3 and no apparent distress HEENT normocephalic Neck full ROM Resp normal respiratory effort Effort and Inspection: able to speak in complete sentences Cardio regular rate Peripheral Pulses: dorsalis pedis pulses present bilateral 1+ Extremity normal capillary refill Extremity Narrative: She has had her toe nails trimmed. Skin Skin Narrative: Bilateral legs are +3 edema and the right leg erythema is worse, no weeping present. The left leg erythema has increased this week with the increase in her edema. She has been lotioning her legs and the large plaques of skin have improved. Wound Narrative: She has no ulcers present. Neuro oriented x3 Sensorium / Orientation: awake Psych cooperative Debridement Note Debridement Note No debridement was completed: No debridement was completed today Post-Debridement Measurements and Additional Note: Post-Debridement Measurements/Treatment WC - Nurse 1 - General Ulcer Assessment Start: 03/02/22 10:11 Freq: Status: Active Protocol: MK Activity Type Activity Date Activity User E-sign Co-sign Detail Recorded Client Recorded Date Recorded By Document 03/02/22 10:11 DL [id number] 03/02/22 10:16 DL 03/02/22 10:11 WC - Today's Visit Information Type of service Follow-up Visit (Physician/GRAVITY METER OBSERVER ) Arrival Mode Ambulatory Transfer Assistance None Patient Identification Verified (Name & Yes ) Patient Requires Transmission-Based No Precautions Vital Signs Temperature (97.8 F-99.1 F) 96.8 F L Temperature Source Temporal Pulse Rate (60-100) 73 Pulse Location Monitor Respiratory Rate (12-18) 18 Respiratory rate source Observation Blood Pressure (90/60-120/80) 152/76 H Blood Pressure Mean (mm Hg) 101 Source Monitor History Since Last Visit- (Skip if this is Patient's initial visit) Have you changed medications since your No last visit? Any new allergies or adverse reactions No Had a fall/change in ADL's that may No increase risk of falls Signs or symptoms of abuse and/or No neglect since last visit Have you been in the hospital since your No last visit? Has dressing in place as prescribed Yes Has compression in place as prescribed Yes Has offloadiing in place as prescribed N/A Experienced any changes in pain level or No management Left Footwear Regular Shoe Right Footwear Regular Shoe Pain Scale: 0-10 Numeric Is Patient Pain Free? Yes - Nurse 1 - General Ulcer Measurement Start: 03/02/22 10:11 Freq: Status: Active Protocol: Activity Type Activity Date Activity User E-sign Co-sign Detail Recorded Client Recorded Date Recorded By Document 03/02/22 10:11 DL [id number] 03/02/22 10:16 DL 03/02/22 10:11 Wound Center Nurse 1 Right Calf (cm) 36.3 Right Ankle (cm) 21.7 Left Calf (cm) 35 Left Ankle (cm) 22 - Nurse 2 - General Ulcer CM Notes Start: 03/02/22 10:11 Freq: Status: Active Protocol: Activity Type Activity Date Activity User E-sign Co-sign Detail Recorded Client Recorded Date Recorded By Document 03/02/22 10:36 [id number] 03/02/22 10:39 03/02/22 10:36 Pain Scale: 0-10 Numeric Is Patient Pain Free? Yes WC - Nurse 3 - General Ulcer D/C NN Start: 03/02/22 10:11 Freq: Status: Active Protocol: Activity Type Activity Date Activity User E-sign Co-sign Detail Recorded Client Recorded Date Recorded By Document 03/02/22 10:56 DL [id number] 03/02/22 10:57 DL 03/02/22 10:56 Wound Care Nurse 3 sheryl -Multi-Layered Wrap Application Multi-Layer Comp - Bilat ($ ) Treatment Response Procedure Tolerated Well Pain Scale: 0-10 Numeric Is Patient Pain Free? Yes WC - Visit Discharge Discharge Condition Stable Ambulatory Status Ambulatory Transportation Private Auto Assessment/Plan Assessment/Plan (1) Excoriation of right lower leg: CODE(S): S80.811A - Abrasion, right lower leg, initial encounter (2) Lower extremity edema: CODE(S): R60.0 - Localized edema (3) Cellulitis of right lower leg: CODE(S): L03.115 - Cellulitis of right lower limb (4) Venous insufficiency: CODE(S): I87.2 - Venous insufficiency (chronic) (peripheral) (5) Acquired lymphedema: CODE(S): I89.0 - Lymphedema, not elsewhere classified PLAN: Plan Patient was evaluated at the wound center today. With her increased edema, will place 3M 2 layer wraps to decrease her edema, so wee can get her into compression stockings that were ordered but she has not picked up. Compression - She needs to picker feeder her compression stockings from, [employer] [facility] [employer] this week while she is in the 3M 2 layer wraps. Instructed her to keep her legs elevated when sitting and lying flat. She should avoid standing for long periods of time. For her bilateral hands - Instructed to start placing thick lotion multiple times per day. Place cotton gloves or white socks on hands at bedtime to help keep moisture in. Instructed to start to wear dish gloves while washing dishes to prevent her skin/hands from being in hot water for too long of a period of time. Wound culture obtained 12/29/21 which was positive for Streptococcus group A, Stenotrophomonas maltophilia, Acinetobacter haemolyticus and Corynebacterium striatum. Completed the Augmentin and Levaquin. She was able to get her toe nails trimmed last week and they look much better. Follow up one week.
[2022-03-09 09:45] VITALS: BP 156/79; PULSE 69; RESP 18; TEMP 36.9
--- NOTE | 2022-03-09 10:59 | PCM.WC.PN ---
History of Present Illness Date of Service: 03/09/22 Chief Complaint: Right lower leg excoriation, drainage and edema. History of Wound: Patient is a 76-year-old female who presents with bilateral lower extremity edema and excoriation on her right leg. She has seen her PCP for this issue who started her on Bactrim which she finishes today. She states that this started a month or so ago. She has not been wearing any compression. She has had drainage from her right leg. She has a history of lower extremity wounds and had a venous doppler 11/16 which showed no valvular incompetence. She often sleeps in a chair. She has a history glaucoma, cellulitis, venous insufficiency, newly diagnosed DM and leg ulcers. She denies fever, chills, nausea or vomiting. She states her appetite is good. Progress of Wound: Patient's edema has improved with the 3M 2 layer wraps. She has no wounds today but has large dry skin plaques. Objective Data Objective Data Vital Signs: Vital Signs Temp Pulse Resp BP 98.4 F 69 18 156/79 H 03/09/22 09:45 03/09/22 09:45 03/09/22 09:45 03/09/22 09:45 Charges/Coding Visit Charges Office Visits / Consults: 21999 OV L3 Est Physical Exam Const alert, oriented x3 and no apparent distress HEENT normocephalic Neck full ROM Resp normal respiratory effort Effort and Inspection: able to speak in complete sentences Cardio regular rate Peripheral Pulses: dorsalis pedis pulses present bilateral 1+ Extremity normal capillary refill Skin Skin Narrative: Bilateral legs are +1 edema after wearing the 3M 2 layer wraps. The erythema also has resolved. She does have large plaques of skin on her bilateral legs and feet. Wound Narrative: She has no ulcers present. Neuro oriented x3 Sensorium / Orientation: awake Psych cooperative Debridement Note Debridement Note No debridement was completed: No debridement was completed today Post-Debridement Measurements and Additional Note: Post-Debridement Measurements/Treatment MARY - Nurse 1 - General Ulcer Assessment Start: 03/02/22 10:11 Freq: Status: Active Protocol: [email or web address] Activity Type Activity Date Activity User E-sign Co-sign Detail Recorded Client Recorded Date Recorded By Document 03/02/22 10:11 DL [id number] 03/02/22 10:16 DL Document 03/09/22 09:45 DL [id number] 03/09/22 09:50 DL 03/02/22 03/09/22 10:11 09:45 WC - Today's Visit Information Type of service Follow-up Visit Follow-up Visit (Physician/CERTIFIED EMERGENCY VEHICLE TECHNICIAN (Physician/CERTIFIED EMERGENCY VEHICLE TECHNICIAN ) ) Arrival Mode Ambulatory Ambulatory Transfer Assistance None None Patient Identification Verified (Name & Yes Yes ) Patient Requires Transmission-Based No No Precautions Vital Signs Temperature (97.8 F-99.1 F) 96.8 F L 98.4 F Temperature Source Temporal Temporal Pulse Rate (60-100) 73 69 Pulse Location Monitor Monitor Respiratory Rate (12-18) 18 18 Respiratory rate source Observation Observation Blood Pressure (90/60-120/80) 152/76 H 156/79 H Blood Pressure Mean (mm Hg) 101 104 Source Monitor Monitor History Since Last Visit- (Skip if this is Patient's initial visit) Have you changed medications since your No No last visit? Any new allergies or adverse reactions No No Had a fall/change in ADL's that may No No increase risk of falls Signs or symptoms of abuse and/or No No neglect since last visit Have you been in the hospital since your No No last visit? Has dressing in place as prescribed Yes Yes Has compression in place as prescribed Yes Yes Has offloadiing in place as prescribed N/A N/A Experienced any changes in pain level or No No management Left Footwear Regular Shoe Right Footwear Regular Shoe Pain Scale: 0-10 Numeric Is Patient Pain Free? Yes Yes WC - Nurse 1 - General Ulcer Measurement Start: 03/02/22 10:11 Freq: Status: Active Protocol: Activity Type Activity Date Activity User E-sign Co-sign Detail Recorded Client Recorded Date Recorded By Document 03/02/22 10:11 DL [id number] 03/02/22 10:16 DL Document 03/09/22 09:45 DL [id number] 03/09/22 09:50 DL 03/02/22 03/09/22 10:11 09:45 Wound Center Nurse 1 Right Calf (cm) 36.3 33 Right Ankle (cm) 21.7 20.5 Left Calf (cm) 35 32 Left Ankle (cm) 22 20.1 WC - Nurse 2 - General Ulcer CM Notes Start: 03/02/22 10:11 Freq: Status: Active Protocol: Activity Type Activity Date Activity User E-sign Co-sign Detail Recorded Client Recorded Date Recorded By Document 03/02/22 10:36 JF [id number] 03/02/22 10:39 JF Document 03/09/22 10:00 JF [id number] 03/09/22 10:00 JF 03/02/22 03/09/22 10:36 10:00 Pain Scale: 0-10 Numeric Is Patient Pain Free? Yes Yes - Nurse 3 - General Ulcer D/C NN Start: 03/02/22 10:11 Freq: Status: Active Protocol: Activity Type Activity Date Activity User E-sign Co-sign Detail Recorded Client Recorded Date Recorded By Document 03/02/22 10:56 DL [id number] 03/02/22 10:57 DL Document 03/09/22 10:19 RB [id number] 03/09/22 10:20 RB 03/02/22 03/09/22 10:56 10:19 Wound Care Nurse 3 sheryl -Multi-Layered Wrap Application Multi-Layer Comp - Bilat ($ ) -Stockings Yes -Other demonstrated application of donning stockings Treatment Response Procedure Tolerated Well Pain Scale: 0-10 Numeric Is Patient Pain Free? Yes Yes Teaching: Wound Center Compression Wraps & Stockings -Person Taught Patient,Family -Teaching Method Discussion, Demonstration -Response to teaching Verbalize understanding WC - Visit Discharge Discharge Condition Stable Stable Ambulatory Status Ambulatory Ambulatory Transportation Private Auto Private Auto Medication Reconcilliation completed & No provided to patient/care provider Clinical Summary of Care Provided Yes Assessment/Plan Assessment/Plan (1) Excoriation of right lower leg: CODE(S): S80.811A - Abrasion, right lower leg, initial encounter (2) Lower extremity edema: CODE(S): R60.0 - Localized edema (3) Cellulitis of right lower leg: CODE(S): L03.115 - Cellulitis of right lower limb (4) Venous insufficiency: CODE(S): I87.2 - Venous insufficiency (chronic) (peripheral) (5) Acquired lymphedema: CODE(S): I89.0 - Lymphedema, not elsewhere classified PLAN: Plan Patient was evaluated at the wound center today. Her edema has improved with the 3M 2 layer wraps. She brought in her compression stockings today and was instructed how to wear them and care for them. Instructed her to keep her legs elevated when sitting and lying flat. She should avoid standing for long periods of time. Stressed the importance of wearing compression on her legs to help prevent the severe edema. She needs to GENTLY wash her legs and feet with a wash cloth to help remove the flaking skin plaques, pat dry legs and then apply thick lotion to her legs and feet to help keep them moisturized. For her bilateral hands - Instructed to start placing thick lotion multiple times per day. Place cotton gloves or white socks on hands at bedtime to help keep moisture in. Instructed to start to wear dish gloves while washing dishes to prevent her skin/hands from being in hot water for too long of a period of time. They are improving with moisturization. Wound culture obtained 12/29/21 which was positive for Streptococcus group A, Stenotrophomonas maltophilia, Acinetobacter haemolyticus and Corynebacterium striatum. Completed the Augmentin and Levaquin. She is scheduled for vascular testing next week. I will phone her with the results. Follow up as needed.
--- NOTE | 2022-03-16 08:57 | ART_ITS ---
Reason For Study: PVD Procedure A bilateral lower extremity continuous wave Doppler with analog waveform analysis,segmental pressures,and ankle brachial indexes without exercise. Left Segmental Pressures Left brachial= 136mmHg. Left posterior tibial artery = 154mmHg. Left dorsalis pedis artery = 154mmHg. Left digit = 105 mmHg. The left posterior tibial artery waveforms are biphasic. The left dorsalis pedis waveforms are triphasic. Right Segmental Pressures Right brachial= 147mmHg. Right posterior tibial artery = 164mmHg. Right dorsalis pedis artery = 171mmHg. Right digit = 96 mmHg. The right posterior tibial artery waveforms are biphasic. The right dorsalis pedis waveforms are triphasic. Indices The right ankle brachial index by the posterior tibial artery is 1.12. The right ankle brachial index by the dorsalis pedis is 1.16. The right digital-brachial index is 0.65. The left ankle brachial index by the posterior tibial artery is 1.05. The left ankle brachial index by the dorsalis pedis is 1.05. The left digital-brachial index is 0.71. VL/Lower Ext Art Exam w/o Exercis Interpretation Summary Biphasic and triphasic Doppler waveforms are noted at ankle level bilaterally. Pulse-volume recordings are diminished at digital level on the right, but satisfactory at al l other levels bilaterally. Resting ankle-brachial indices are normal bilaterally. The right d igital-brachial index is mildly diminished. The left digital-brachial index is normal. Arterial flow appears normal at ankle level bilaterally, and at digital level o n the left. There is evidence of mild arterial occlusive disease at digital level on the right. Ordering Physician: Britney Beck Referring Physician: Umang Villasenor Performed By: Carlos Castro RVKingsley
--- NOTE | 2022-03-16 08:57 | VDLE_ITS ---
Reason For Study: EDEMA RIGHT LEFT CFV is compressible, spontaneous, phasic, CFV is compressible, spontaneous, phasic, competent and demonstrates normal competent, and demonstrates normal augmentation. augmentation. FV is compressible, spontaneous, phasic, FV is compressible, spontaneous, phasic, competent and demonstrates normal competent and demonstrates normal augmentation. augmentation. POP V is compressible, spontaneous, phasic, POP V is compressible, spontaneous, phasic, competent and demonstrates normal competent and demonstrates normal augmentation. augmentation. T/P Trunk is compressible. T/P Trunk is compressible. PTV is compressible. PTV is compressible. RT PerV is compressible. LT PerV is compressible. SFJ is competent and measures 0.50 x 0.61 cm. SFJ is competent and measures 0.53 x 0.52 cm. GSV proximal thigh measures 0.34 x 0.35 cm. GSV proximal thigh measures 0.42 x 0.47 cm. GSV at knee measures 0.49 x 0.52 cm. GSV at knee measures 0.44 x 0.44 cm. GSV is competent throughout. GSV is competent throughout. SSV proximal calf is competent and measures SSV proximal calf is competent and measures 0.31 x 0.32 cm. 0.20 x 0.27 cm. Procedure Exam performed in department. This is a venous duplex using B-mode, color flow and spectral Doppler. The exam was diagnostic. VL/Venous Duplex US - Trey Extrem Interpretation Summary Deep veins of the lower extremities are bilaterally patent and compressible seg mentally. There is no evidence of deep vein thrombosis on either side. Valvular competence appears in tact within the proximal deep venous systems bilaterally. The great saphenous veins appear bila terally patent and compressible segmentally. Sapheno-femoral junctions are bilaterally competent . Valvular competence appears to be intact segmentally within the great saphenous veins bilaterally. Small saphenous veins are patent and competent bilaterally. Ordering Physician: Britney Beck Referring Physician: Umang Villasenor Performed By: Carlos Castro RVT
== END 2022-03-16 23:59 | disposition home or self-care (01) ==
LOC: WC 09:00
PROVIDERS: PCP Student in an Organized Health Care Education/Training Program; Referring Provider Nurse Practitioner Family; Visit Provider Nurse Practitioner Family
DX: S80.811D Abrasion, right lower leg, subsequent encounter (principal); I73.9 Peripheral vascular disease, unspecified; E11.9 Type 2 diabetes mellitus without complications; R60.0 Localized edema; L03.115 Cellulitis of right lower limb; I89.0 Lymphedema, not elsewhere classified; H40.9 Unspecified glaucoma; I87.2 Venous insufficiency (chronic) (peripheral)
CPT/HCPCS: 29581; 93923; 93970; 99213; G0463